=== PATIENT | male | born 1965 | race African-American/Black ===

== ENCOUNTER 2017-11-06 08:13 | Emergency (ER) | payer MEDICARE ==
[2017-11-06] MEDS: FLUORESCEIN OPHTH TEST STRIP. OD (09:09)
[2017-11-06] MEDS: PROPARACAINE 0.5% OPHTH SOLUTION 15ML BOTTLE. OD (09:10)
[2017-11-06] MEDS: ACYCLOVIR SODIUM IV (09:30)
[2017-11-06] MEDS: DEXTROSE 5% IV (09:30)
[2017-11-06 10:26] LABS: ADD MAN DIFF? NO
[2017-11-06 10:29] LABS: BASO # 0.1 x10^3/uL (0.0-0.2); BASO % 3 % (0-3); EOS # 0.1 x10^3/uL (0.0-0.7); EOS % 3 % (0-3); HEMATOCRIT 34.6 % (39.0-53.0); HEMOGLOBIN 11.9 g/dL (13.0-17.5); LYMPH # 0.6 x10^3/uL (1.0-4.8); LYMPH % 24 % (24-48); MEAN CORPUSCULAR HEMOGLOBIN 32 pg (25-35); MEAN CORPUSCULAR HGB CONC 35 g/dL (31-37); MEAN CORPUSCULAR VOLUME 92 fL (79-100); MONO # 0.2 x10^3/uL (0.0-1.1); MONO % 9 % (0-9); NEUT # 1.5 x10^3uL (1.8-7.7); NEUT % 62 % (31-73); PLATELET COUNT 107 x10^3/uL (140-400); RED BLOOD COUNT 3.78 x10^6/uL (4.30-5.70); RED CELL DISTRIBUTION WIDTH 14.6 % (11.5-14.5); WHITE BLOOD COUNT 2.4 x10^3/uL (4.0-11.0)
[2017-11-06 10:38] LABS: ANION GAP 13 (6-14); BLOOD UREA NITROGEN 7 mg/dL (8-26); BUN/CREATININE RATIO 12 (6-20); CALCIUM 8.9 mg/dL (8.5-10.1); CARBON DIOXIDE 26 mmol/L (21-32); CHLORIDE 102 mmol/L (98-107); CREATININE 0.6 mg/dL (0.7-1.3); GFR 169.9; GLUCOSE 60 mg/dL (70-99); SODIUM 141 mmol/L (136-145)
[2017-11-06 10:40] LABS: POTASSIUM 3.8 mmol/L (3.5-5.1)
[2017-11-06 10:45] LABS: ALBUMIN 3.3 g/dL (3.4-5.0); ALBUMIN/GLOBULIN RATIO 0.7 (1.0-1.7); ALK PHOS 109 U/L (46-116); ALT (SGPT) 21 U/L (16-63); AST (SGOT) 78 U/L (15-37); TOTAL BILIRUBIN 0.7 mg/dL (0.2-1.0)
[2017-11-06] MEDS ORDERED: ACYCLOVIR SODIUM IV (14:00)
[2017-11-06] MEDS ORDERED: DEXTROSE 5% IV (14:00)
[2017-11-06 17:10] LABS: POC GLUCOSE 82 mg/dL (70-99)
== END 2017-11-06 11:25 | disposition home or self-care (01) ==
LOC: ER 08:13
DX: B02.30 Zoster ocular disease, unspecified (principal)
CPT/HCPCS: 36415; 80053; 82962; 85025; 96365; 99284-25; J0133

== ENCOUNTER 2019-03-07 13:09 | Inpatient (IN) | payer MEDICARE ==
[~2019-03-07] VITALS: Ht 162.6 cm; Wt 54.7 kg
[~2019-03-07 13:09] MED LIST: ACYC800T PO; HYDR-3164 PO; PANT40TA77 PO
[2019-03-07] MEDS ORDERED: IV NORMAL SALINE 1000ML BAG 1,000 ML IV SCH (13:49)
--- NOTE | 2019-03-07 13:56 | PHYS DOC ---
Past Medical History Past Medical History: GERD, Pancreatitis, Other Additional Past Medical Histor: SHINGLES Past Surgical History: Other Additional Past Surgical Histo: PLATE/SCREWS RIGT FEMUR AND RIGHT HUMERUS Smoking: Cigarettes Alcohol Use: Heavy Drug Use: None Adult General Chief Complaint Chief Complaint: ABDOMINAL PAIN HPI HPI Patient is a 53 y/o AAM who presents to the ED for evaluation of epigastric abdominal pain, which began last night, after drinking a pint of liquor. He has had an episode of pancreatitis in the past, according to records reviewed. He has not had any nausea or vomiting. He states that he has had similar pain in the past after drinking alcohol. He has not had any fevers or chills, denies any chest pain, or black or bloody stools. There are no alleviating or exacerbating factors to his symptoms otherwise. He states he states a little bit of the pint of alcohol that he had from yesterday, for this morning. Patient did have a CT of his abdomen and pelvis this past December, which has been reviewed. Review of Systems Review of Systems Constitutional: Denies fever or chills [] Eyes: Denies change in visual acuity, redness, or eye pain [] HENT: Denies nasal congestion or sore throat [] Respiratory: Denies cough or shortness of breath [] Cardiovascular: The patient denies any shortness of breath, chest pain, palpitations, or orthopnea[] GI: Denies nausea, vomiting, bloody stools or diarrhea [] : Denies dysuria or hematuria [] Musculoskeletal: Denies back pain or joint pain [] Integument: Denies rash or skin lesions [] Neurologic: Denies headache, focal weakness or sensory changes [] Endocrine: Denies polyuria or polydipsia [] All other systems were reviewed and found to be within normal limits, except as documented in this note. Current Medications Current Medications Current Medications Medications (Trade) Dose Ordered Sig/Elana Start Time Stop Time Status Last Admin Dose Admin Dextrose/Lactated Ringer's 1,000 ml @ 125 mls/hr 1X ONCE 03/07/19 15:00 03/07/19 22:59 Famotidine (Pepcid Vial) 20 mg 1X ONCE 03/07/19 14:00 03/07/19 14:01 DC 03/07/19 14:08 20 MG Info (CONTRAST GIVEN -- Rx MONITORING) 1 each PRN DAILY PRN 03/07/19 15:15 03/09/19 15:14 Iohexol (Omnipaque 300 Mg/ml) 75 ml 1X ONCE 03/07/19 15:15 03/07/19 15:16 DC 03/07/19 15:28 75 ML Magnesium Sulfate 50 ml @ 25 mls/hr 1X ONCE 03/07/19 15:30 03/07/19 17:29 Multi-Ingredient Mouthwash/Gargle (Gi Cocktail) 20 ml 1X ONCE 03/07/19 14:00 03/07/19 14:01 DC 03/07/19 14:08 20 ML Multivitamins 10 ml/Thiamine HCl 100 mg/Folic Acid 1 mg/Sodium Chloride 1,011.2 ml @ 1,000.088 mls/hr 1X ONCE 03/07/19 15:15 03/07/19 16:15 03/07/19 15:55 1,000.088 MLS/HR Ondansetron HCl (Zofran) 4 mg 1X ONCE 03/07/19 14:00 03/07/19 14:01 DC 03/07/19 14:08 4 MG Sodium Chloride 1,000 ml @ 1,000 mls/hr Q1H 03/07/19 13:49 03/07/19 14:48 DC 03/07/19 14:08 1,000 MLS/HR Allergies Allergies Allergies Coded Allergies Type Severity Reaction Last Updated Verified No Known Drug Allergies 11/06/17 No Physical Exam Physical Exam PHYSICAL EXAM: CONSTITUTIONAL: Well developed, well nourished HEAD: normocephalic, atraumatic EENT: PERRL, EOMI. Conjunctivae normal color, sclerae non-icteric; moist mucous membranes. There is no nystagmus noted. NECK: Supple, non-tender; no meningismus. LUNGS: Lungs CTA, breathing even and unlabored. Normal air movement. HEART: Regular rate and rhythm, no murmur CHEST: No deformity; non-tender ABDOMEN: The abdomen is soft, there is diffuse upper abdominal tenderness to palpation, most prominent in the epigastric area, without rebound or guarding, the lower abdomen is soft and mostly non-tender, no masses or bruits. EXTREM: Normal ROM; no deformity, no calf tenderness. Normal pulses palpable in all extremities. There is no pedal edema. SKIN: No rash; no diaphoresis NEURO: Alert; normal speech and cognition; CN's grossly intact; strength grossly intact without focal deficit. BACK: No CVA TTP. Current Patient Data Vital Signs Vital Signs Date Time Temp Pulse Resp B/P (MAP) Pulse Ox O2 Delivery O2 Flow Rate FiO2 03/07/19 13:15 97.8 90 16 160/97 (118) 100 Room Air 97.8 Lab Values Laboratory Tests Test 03/07/19 13:54 03/07/19 14:20 03/07/19 15:30 Urine Collection Type Unknown Urine Color Yellow Urine Clarity Clear Urine pH 5.5 Urine Specific Bliss 1.015 Urine Protein 100 mg/dL (NEG-TRACE) Urine Glucose (UA) Negative mg/dL (NEG) Urine Ketones (Stick) >=80 mg/dL (NEG) Urine Blood Small (NEG) Urine Nitrite Negative (NEG) Urine Bilirubin Moderate (NEG) Urine Urobilinogen Dipstick 1.0 mg/dL (0.2 mg/dL) Urine Leukocyte Esterase Negative (NEG) Urine RBC 0 /HPF (0-2) Urine WBC 0 /HPF (0-4) Urine Bacteria 0 /HPF (0-FEW) Urine Hyaline Casts Occasional /HPF Urine Mucus Mod /LPF Urine Opiates Screen Neg (NEG) Urine Methadone Screen Neg (NEG) Urine Barbiturates Neg (NEG) Urine Phencyclidine Screen Pos (NEG) Urine Amphetamine/Methamphetamine Neg (NEG) Urine Benzodiazepines Screen Neg (NEG) Urine Cocaine Screen Neg (NEG) Urine Cannabinoids Screen Neg (NEG) Urine Ethyl Alcohol Neg (NEG) White Blood Count 6.2 x10^3/uL (4.0-11.0) Red Blood Count 4.55 x10^6/uL (4.30-5.70) Hemoglobin 13.4 g/dL (13.0-17.5) Hematocrit 40.7 % (39.0-53.0) Mean Corpuscular Volume 89 fL (79-100) Mean Corpuscular Hemoglobin 30 pg (25-35) Mean Corpuscular Hemoglobin Concent 33 g/dL (31-37) Red Cell Distribution Width 13.8 % (11.5-14.5) Platelet Count 129 x10^3/uL (140-400) L Neutrophils (%) (Auto) 79 % (31-73) H Lymphocytes (%) (Auto) 12 % (24-48) L Monocytes (%) (Auto) 8 % (0-9) Eosinophils (%) (Auto) 1 % (0-3) Basophils (%) (Auto) 0 % (0-3) Neutrophils # (Auto) 4.9 x10^3/uL (1.8-7.7) Lymphocytes # (Auto) 0.8 x10^3/uL (1.0-4.8) L Monocytes # (Auto) 0.5 x10^3/uL (0.0-1.1) Eosinophils # (Auto) 0.1 x10^3/uL (0.0-0.7) Basophils # (Auto) 0.0 x10^3/uL (0.0-0.2) Sodium Level 138 mmol/L (136-145) Potassium Level 4.0 mmol/L (3.5-5.1) Chloride Level 98 mmol/L (98-107) Carbon Dioxide Level 11 mmol/L (21-32) *L Anion Gap 29 (6-14) H Blood Urea Nitrogen 4 mg/dL (8-26) L Creatinine 1.2 mg/dL (0.7-1.3) Estimated GFR (Cockcroft-Gault) 76.1 BUN/Creatinine Ratio 3 (6-20) L Glucose Level 81 mg/dL (70-99) Lactic Acid Level 1.0 mmol/L (0.4-2.0) Calcium Level 9.1 mg/dL (8.5-10.1) Magnesium Level 1.4 mg/dL (1.8-2.4) L Total Bilirubin 0.8 mg/dL (0.2-1.0) Aspartate Amino Transferase (AST) 53 U/L (15-37) H Alanine Aminotransferase (ALT) 26 U/L (16-63) Alkaline Phosphatase 121 U/L (46-116) H Troponin I Quantitative < 0.017 ng/mL (0.000-0.055) Total Protein 8.4 g/dL (6.4-8.2) H Albumin 3.5 g/dL (3.4-5.0) Albumin/Globulin Ratio 0.7 (1.0-1.7) L Lipase 966 U/L (73-393) H Ethyl Alcohol Level < 10 mg/dL (0-10) Acetone Level Mod pos (NEG) O2 Saturation 97 % (92-99) Arterial Blood pH 7.17 (7.35-7.45) *L Arterial Blood pCO2 at Patient Temp < 15 mmHg (35-46) *L Arterial Blood pO2 at Patient Temp 116 mmHg (75-108) H Arterial Blood HCO3 5 mmol/L (21-28) L Arterial Blood Base Excess -21 mmol/L (-3-3) L FiO2 21 Laboratory Tests 03/07/19 14:20 Laboratory Tests 03/07/19 14:20 EKG EKG Normal sinus rhythm with a normal rate, normal axis, normal intervals, there are no acute ischemic ST/T changes.[] Radiology/Procedures Radiology/Procedures []PROCEDURE: CT ABD PELV W/ IV CONTRST ONLY Exam: CT abdomen and pelvis with contrast INDICATION: Abdominal pain TECHNIQUE: Sequential axial images through the abdomen and pelvis obtained following the administration of 75 mL of Omni 300 IV contrast. Sagittal and coronal reformatted images were reconstructed from the axial data and reviewed. Comparisons: 01/06/2019 FINDINGS: Heart size is normal. No pericardial effusion. Visualized lung bases are clear. No pleural effusion. Diffuse hepatic steatosis. Gallstones and sludge are noted layering within the gallbladder. Spleen is not enlarged. Adrenals are unremarkable. There is inflammatory changes surrounding the pancreas. Pancreas demonstrates homogenous enhancement without pancreatic ductal dilatation or peripancreatic fluid collection. Kidneys demonstrate symmetric enhancement. No perinephric inflammation or hydronephrosis. There is mild ureteral wall enhancement on the left proximally which may be secondary to the above process. No renal or ureteral calculi. Bladder is distended and appears thin-walled. Prostate is not enlarged. Large and small bowel are unremarkable. No obstruction. No free intra-abdominal air or fluid. Abdominal aorta has a normal course and caliber. Abdominal vasculature is patent. No enlarged intra-abdominal lymph nodes are identified. Severe degenerative change at the hip joints bilaterally. No suspicious osseous lesions or acute fractures. IMPRESSION: 1. Findings of acute interstitial pancreatitis. No evidence for pancreatic necrosis or peripancreatic fluid collection. 2. Mild enhancement of the proximal left ureter wall, may be reactive to the above process. Correlate with urinalysis for infection. 3. Hepatic steatosis 4. Cholelithiasis. Course & Med Decision Making Course & Med Decision Making Pertinent Labs and Imaging studies reviewed. (See chart for details) []4:00 PM: The patient's condition remains stable. I spoke with the patient's PCP, who accepted the patient to the hospital for further evaluation and treatment. CRITICAL CARE TIME: 40 Minutes, excluding any procedures and care of other patients. Dragon Disclaimer Dragon Disclaimer This electronic medical record was generated, in whole or in part, using a voice recognition dictation system. Departure Departure Impression: Primary Impression: Alcoholic ketoacidosis Additional Impressions: Acute pancreatitis Alcoholism Disposition: 09 ADMITTED INPATIENT Admitting Physician: Saul Shook Condition: GUARDED Referrals: SAUL SHOOK MD (PCP) Problem Qualifiers ULISES MCKNIGHT MD Mar 07, 2019 13:55
[2019-03-07] MEDS ORDERED: LIDO:MAALOX 1:1 20 ML SINGLE DOSE. SWSW ONE (14:00)
[2019-03-07] MEDS ORDERED: FAMOTIDINE 20 MG/2 ML VIAL IVP ONE (14:00)
[2019-03-07] MEDS ORDERED: ONDANSETRON PF 4 MG/2 ML VIAL. IV ONE (14:00)
[2019-03-07 14:04] LABS: BILIRUBIN,URINE MODERATE (NEG); CLARITY,URINE CLEAR; COLOR,URINE YELLOW; NITRITE,URINE NEGATIVE (NEG); PH,URINE 5.5; PROTEIN,URINE 100 mg/dL (NEG-TRACE)
[2019-03-07 14:10] LABS: AMPHETAMINE/METHAMPHETAMINE NEG (NEG); BARBITURATES NEG (NEG); BENZODIAZEPINES NEG (NEG); CANNABINOIDS NEG (NEG); COCAINE NEG (NEG); METHADONE NEG (NEG); OPIATES NEG (NEG); PHENCYCLIDINE POS (NEG)
[2019-03-07 14:13] LABS: HYALINE CASTS, URINE OCCASIONAL /HPF
[2019-03-07 14:14] LABS: BACTERIA,URINE 0 /HPF (0-FEW); RBC,URINE 0 /HPF (0-2); WBC,URINE 0 /HPF (0-4)
[2019-03-07 14:34] LABS: BASO % 0 % (0-3); EOS # 0.1 x10^3/uL (0.0-0.7); EOS % 1 % (0-3); HEMATOCRIT 40.7 % (39.0-53.0); HEMOGLOBIN 13.4 g/dL (13.0-17.5); LYMPH # 0.8 x10^3/uL (1.0-4.8); LYMPH % 12 % (24-48); MEAN CORPUSCULAR HEMOGLOBIN 30 pg (25-35); MEAN CORPUSCULAR HGB CONC 33 g/dL (31-37); MEAN CORPUSCULAR VOLUME 89 fL (79-100); MONO # 0.5 x10^3/uL (0.0-1.1); MONO % 8 % (0-9); NEUT # 4.9 x10^3/uL (1.8-7.7); NEUT % 79 % (31-73); PLATELET COUNT 129 x10^3/uL (140-400); RED BLOOD COUNT 4.55 x10^6/uL (4.30-5.70); RED CELL DISTRIBUTION WIDTH 13.8 % (11.5-14.5); WHITE BLOOD COUNT 6.2 x10^3/uL (4.0-11.0)
[2019-03-07 14:45] LABS: ALBUMIN 3.5 g/dL (3.4-5.0); ALBUMIN/GLOBULIN RATIO 0.7 (1.0-1.7); CALCIUM 9.1 mg/dL (8.5-10.1); CREATININE 1.2 mg/dL (0.7-1.3); GFR 76.1; TOTAL BILIRUBIN 0.8 mg/dL (0.2-1.0); TOTAL PROTEIN 8.4 g/dL (6.4-8.2)
[2019-03-07] MEDS ORDERED: IV DEXTROSE 5%-LACT RINGERS 1,000 ML IV ONE ×3 (15:00→16:30)
[2019-03-07] MEDS ORDERED: IOHEXOL 300 MG/ML 100ML VIAL. IV ONE (15:15)
[2019-03-07] MEDS ORDERED: MULTIVIT INFUSN,ADULT 4,VIT K 10 ML, THIAMINE INJ 100 MG, FOLIC ACID INJ 1 MG in IV NOR... IV ONE (15:15)
[2019-03-07] MEDS ORDERED: CONTRAST GIVEN. MC PRN (15:15)
--- NOTE | 2019-03-07 15:19 | EKG ---
[facility] [address] [place] [address] Test Date: 2019-03-07 Test Time: 14:17:40 Pat Name: MARCELINO BRYANT Department: Room: Gender: M Barrel Header: : 1965 Requested By: ULISES MCKNIGHT Order Number: [id number] Reading MD: Measurements Intervals [place] Rate: 90 P: 67 TX: 136 QRS: 59 QRSD: 82 T: 61 QT: 360 QTc: 444 Interpretive Statements SINUS RHYTHM OTHERWISE NORMAL ECG RI6.01 No previous ECG available for comparison
[2019-03-07] MEDS ORDERED: MAGNESIUM SULFATE 2GM 50 ML IV ONE (15:30)
[2019-03-07 15:34] LABS: BASE EXCESS ABG -21 mmol/L (-3-3); HCO3 ABG 5 mmol/L (21-28); PO2 ABG 116 mmHg (75-108); SAT O2 ABG 97 % (92-99)
[2019-03-07 15:37] LABS: FIO2 ABG 21; PCO2 ABG < 15 mmHg (35-46)
--- NOTE | 2019-03-07 15:43 | RAD ---
Exam: CT abdomen and pelvis with contrast INDICATION: Abdominal pain TECHNIQUE: Sequential axial images through the abdomen and pelvis obtained following the administration of 75 mL of Omni 300 IV contrast. Sagittal and coronal reformatted images were reconstructed from the axial data and reviewed. Comparisons: 01/06/2019 FINDINGS: Heart size is normal. No pericardial effusion. Visualized lung bases are clear. No pleural effusion. Diffuse hepatic steatosis. Gallstones and sludge are noted layering within the gallbladder. Spleen is not enlarged. Adrenals are unremarkable. There is inflammatory changes surrounding the pancreas. Pancreas demonstrates homogenous enhancement without pancreatic ductal dilatation or peripancreatic fluid collection. Kidneys demonstrate symmetric enhancement. No perinephric inflammation or hydronephrosis. There is mild ureteral wall enhancement on the left proximally which may be secondary to the above process. No renal or ureteral calculi. Bladder is distended and appears thin-walled. Prostate is not enlarged. Large and small bowel are unremarkable. No obstruction. No free intra-abdominal air or fluid. Abdominal aorta has a normal course and caliber. Abdominal vasculature is patent. No enlarged intra-abdominal lymph nodes are identified. Severe degenerative change at the hip joints bilaterally. No suspicious osseous lesions or acute fractures. IMPRESSION: 1. Findings of acute interstitial pancreatitis. No evidence for pancreatic necrosis or peripancreatic fluid collection. 2. Mild enhancement of the proximal left ureter wall, may be reactive to the above process. Correlate with urinalysis for infection. 3. Hepatic steatosis 4. Cholelithiasis. Exposure: One or more of the following in the visualized dose reduction techniques were utilized for this examination: 1. Automated exposure control 2. Adjustment of the MA and/or KV according to patient size 3. Use of iterative of reconstructive technique Electronically signed by: Angella Awad MD (03/07/2019 3:40 PM) [facility]
[2019-03-07 18:05] VITALS: BP 154/108
[2019-03-07 19:20] VITALS: BP 193/111
[2019-03-07] MEDS ORDERED: cloNIDine TTS-2 1 PATCH PATCH TD SCH (20:00)
[2019-03-07] MEDS: hydrALAZINE 20 MG/ML VIAL. IVP PRN (21:29)
[2019-03-07] MEDS: ONDANSETRON PF 4 MG/2 ML VIAL. IV PRN (23:26)
[2019-03-07 23:51] VITALS: BP 161/83
[2019-03-08 03:23] VITALS: BP 165/87
[2019-03-08 03:57] LABS: BASO % 0 % (0-3); EOS # 0.1 x10^3/uL (0.0-0.7); EOS % 3 % (0-3); HEMATOCRIT 38.8 % (39.0-53.0); HEMOGLOBIN 13.1 g/dL (13.0-17.5); LYMPH # 0.5 x10^3/uL (1.0-4.8); LYMPH % 14 % (24-48); MEAN CORPUSCULAR HEMOGLOBIN 29 pg (25-35); MEAN CORPUSCULAR HGB CONC 34 g/dL (31-37); MEAN CORPUSCULAR VOLUME 87 fL (79-100); MONO # 0.3 x10^3/uL (0.0-1.1); MONO % 8 % (0-9); NEUT # 2.6 x10^3/uL (1.8-7.7); NEUT % 75 % (31-73); PLATELET COUNT 113 x10^3/uL (140-400); RED BLOOD COUNT 4.47 x10^6/uL (4.30-5.70); RED CELL DISTRIBUTION WIDTH 13.3 % (11.5-14.5); WHITE BLOOD COUNT 3.4 x10^3/uL (4.0-11.0)
[2019-03-08 04:27] LABS: ALBUMIN 2.9 g/dL (3.4-5.0); ALBUMIN/GLOBULIN RATIO 0.6 (1.0-1.7); CALCIUM 8.8 mg/dL (8.5-10.1); CREATININE 0.9 mg/dL (0.7-1.3); MAGNESIUM 2.1 mg/dL (1.8-2.4); POTASSIUM 3.3 mmol/L (3.5-5.1); TOTAL BILIRUBIN 0.6 mg/dL (0.2-1.0); TOTAL PROTEIN 7.8 g/dL (6.4-8.2)
[2019-03-08] MEDS: ONDANSETRON PF 4 MG/2 ML VIAL. IV PRN ×2 (05:11→09:27)
[2019-03-08 07:15] VITALS: BP 140/82
[2019-03-08] MEDS: PANTOPRAZOLE IV PUSH 40 MG VIAL. IVP SCH (09:27)
[2019-03-08 10:54] VITALS: BP 159/82
[2019-03-08] MEDS ORDERED: AMINO AC 3%/ELECTROLYTE/GLYCER 1,000 ML IV SCH (13:00)
[2019-03-08 15:03] VITALS: BP 148/90
--- NOTE | 2019-03-08 15:07 | HP ---
ADMIT DATE: 03/07/2019 ADMISSION HISTORY AND PHYSICAL CHIEF COMPLAINT: Abdominal pain. HISTORY OF PRESENT ILLNESS AND HOSPITAL COURSE: This patient is a 53-year-old -[place] male with known alcohol dependence, came to the hospital with increasing abdominal pain. He states this began approximately 2 days ago, he began drinking a pint of gin, his last drink was approximately 12 hours prior to coming to the Emergency Room. Initial evaluation showed CAT scan with evidence of pancreatitis, but without evidence of pseudocyst. The patient was found to have an elevated lipase consistent with acute pancreatitis. Also, found to have significant acidosis consistent with ketoacidosis from alcoholism or alcohol ingestion and carbon dioxide of 11, a pH of 7.17. Urine toxicology showed minimal amounts of alcohol, but positive acetone and a positive PCP. The patient has chronic thrombocytopenia with history of cirrhosis noted. Due to severity of symptoms and the patient's inability to take p.o. intake or take care of himself, he was admitted for further evaluation and n.p.o. status. He was given IV fluids as well as vitamins via banana bag including thiamine, medications for withdrawal were instituted including antihypertensives, benzodiazepines, and antinausea medication. PAST MEDICAL HISTORY: Significant for: 1. Alcohol dependence. 2. Cirrhosis of the liver. 3. Polysubstance abuse. 4. History of cholelithiasis without cholecystitis. 5. Moderate protein malnutrition. 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 7. Hypertension. 8. Polysubstance abuse. FAMILY HISTORY: Significant for heart disease, but the patient is a poor historian. The patient states he has had multiple surgeries on his shoulder, hips and legs, these were not specified. SOCIAL HISTORY: The patient no longer smokes, but does smoke marijuana and has used PCP approximately 1 week ago. The patient drinks alcohol heavily. The patient apparently does live with spouse. ALLERGIES: The patient has no known drug allergies. MEDICATIONS: The patient's outpatient medication includes Protonix 40 mg daily. REVIEW OF SYSTEMS: The patient was doing well until approximately 3 days ago when he went on a drinking binge and began having abdominal pain. Denies cough, congestion, fever, chills, weight loss, weight gain, nausea or vomiting. PHYSICAL EXAMINATION: GENERAL: This is a thin -[place] male in no apparent distress. On my exam, he is alert and oriented at present. HEENT: Reveals poor dentition. NECK: Supple. CARDIAC: Regular rate and rhythm. LUNGS: Clear. ABDOMEN: Tender to palpation with positive bowel sounds. No rebound, mild guarding noted. EXTREMITIES: 2+ pulses without significant edema. No skin lesions or ulcers were noted. ASSESSMENT: 1. Acute pancreatitis. 2. Alcoholic ketoacidosis. 3. Thrombocytopenia. 4. Cirrhosis of the liver. 5. Moderate protein malnutrition. 6. Polysubstance abuse. PLAN: To proceed with alcohol withdrawal precautions, proceed with IV fluids and IV nutrition as needed. Proceed with n.p.o. status. Monitor lipase and electrolytes and acidosis. TREVOR RIOS MD DR: COLBY/malka JOB#: [id number] / [id number]
[2019-03-08 19:38] VITALS: BP 164/99
[2019-03-08 23:46] VITALS: BP 152/101
[2019-03-09] MEDS: ONDANSETRON PF 4 MG/2 ML VIAL. IV PRN ×4 (01:17→20:19)
[2019-03-09] MEDS ORDERED: AMINO AC 3%/ELECTROLYTE/GLYCER 1,000 ML IV SCH (01:30)
[2019-03-09 03:34] VITALS: BP 162/95
[2019-03-09 06:11] LABS: CALCIUM 9.2 mg/dL (8.5-10.1); CREATININE 0.6 mg/dL (0.7-1.3); GFR 169.3; POTASSIUM 3.3 mmol/L (3.5-5.1)
[2019-03-09 07:15] VITALS: BP 140/91
[2019-03-09] MEDS: PANTOPRAZOLE IV PUSH 40 MG VIAL. IVP SCH (08:12)
--- NOTE | 2019-03-09 09:48 | NUR ---
CHRISTOPHER following pt for dc planning. Chart reviewed. Pt lives at home and has chronic ETOH use hx and currently going through detox. CHRISTOPHER phoned PAT team for assessment and evaluation for ETOH use treatment. Addendum: 03/09/19 at 1414 by NICHO WHITE Pt seen by PAT team. Pt is not interested in Inpt tx but has agreed to f/u with [facility] for op tx. Pt is provided with resources.
[2019-03-09 10:52] VITALS: BP 140/96
--- NOTE | 2019-03-09 12:59 | PDOC ---
PROGRESS NOTES Subjective Subjective Patient having recurrent pain with clear liquids. will increase nausea and pain treatment and make npo lipase slightly higher. Objective Objective Vital Signs Date Time Temp Pulse Resp B/P (MAP) Pulse Ox O2 Delivery O2 Flow Rate FiO2 03/09/19 10:52 98.2 103 20 140/96 (111) 99 Room Air 98.2 Intake and Output 03/09/19 07:00 Intake Total 220 ml Output Total 1076 ml Balance -856 ml Intake Oral 220 ml Output Urine Total 1075 ml Stool Total 1 ml Physical Exam Abdomen: Normal bowel sounds, Other (tender mid abd. Neg rebound) Heart: Regular rate Extremities: No edema General: Alert Lungs: Clear to auscultation Assessment Assessment Problems Medical Problems: (1) Acute pancreatitis Status: Acute (2) Alcoholic ketoacidosis Status: Acute (3) Alcoholism Status: Acute (4) Liver cirrhosis Status: Chronic 1. Acute pancreatitis. 2. Alcoholic ketoacidosis. 3. Thrombocytopenia. 4. Cirrhosis of the liver. 5. Moderate protein malnutrition. 6. Polysubstance abuse. Plan Plan of Care Back to NPO continue ProcalAmine Add fentanyl and Compazine recheck labs in am consult GI Comment Review of Relevant I have reviewed the following items adam (where applicable) has been applied. Labs Laboratory Tests Test 03/07/19 13:54 03/07/19 14:20 03/07/19 15:30 03/08/19 03:40 Urine Collection Type Unknown Urine Color Yellow Urine Clarity Clear Urine pH 5.5 Urine Specific [place] 1.015 Urine Protein 100 mg/dL (NEG-TRACE) Urine Glucose (UA) Negative mg/dL (NEG) Urine Ketones (Stick) >=80 mg/dL (NEG) Urine Blood Small (NEG) Urine Nitrite Negative (NEG) Urine Bilirubin Moderate (NEG) Urine Urobilinogen Dipstick 1.0 mg/dL (0.2 mg/dL) Urine Leukocyte Esterase Negative (NEG) Urine RBC 0 /HPF (0-2) Urine WBC 0 /HPF (0-4) Urine Bacteria 0 /HPF (0-FEW) Urine Hyaline Casts Occasional /HPF Urine Mucus Mod /LPF Urine Opiates Screen Neg (NEG) Urine Methadone Screen Neg (NEG) Urine Barbiturates Neg (NEG) Urine Phencyclidine Screen Pos (NEG) Urine Amphetamine/Methamphetamine Neg (NEG) Urine Benzodiazepines Screen Neg (NEG) Urine Cocaine Screen Neg (NEG) Urine Cannabinoids Screen Neg (NEG) Urine Ethyl Alcohol Neg (NEG) White Blood Count 6.2 x10^3/uL (4.0-11.0) 3.4 x10^3/uL (4.0-11.0) Red Blood Count 4.55 x10^6/uL (4.30-5.70) 4.47 x10^6/uL (4.30-5.70) Hemoglobin 13.4 g/dL (13.0-17.5) 13.1 g/dL (13.0-17.5) Hematocrit 40.7 % (39.0-53.0) 38.8 % (39.0-53.0) Mean Corpuscular Volume 89 fL (79-100) 87 fL (79-100) Mean Corpuscular Hemoglobin 30 pg (25-35) 29 pg (25-35) Mean Corpuscular Hemoglobin Concent 33 g/dL (31-37) 34 g/dL (31-37) Red Cell Distribution Width 13.8 % (11.5-14.5) 13.3 % (11.5-14.5) Platelet Count 129 x10^3/uL (140-400) 113 x10^3/uL (140-400) Neutrophils (%) (Auto) 79 % (31-73) 75 % (31-73) Lymphocytes (%) (Auto) 12 % (24-48) 14 % (24-48) Monocytes (%) (Auto) 8 % (0-9) 8 % (0-9) Eosinophils (%) (Auto) 1 % (0-3) 3 % (0-3) Basophils (%) (Auto) 0 % (0-3) 0 % (0-3) Neutrophils # (Auto) 4.9 x10^3/uL (1.8-7.7) 2.6 x10^3/uL (1.8-7.7) Lymphocytes # (Auto) 0.8 x10^3/uL (1.0-4.8) 0.5 x10^3/uL (1.0-4.8) Monocytes # (Auto) 0.5 x10^3/uL (0.0-1.1) 0.3 x10^3/uL (0.0-1.1) Eosinophils # (Auto) 0.1 x10^3/uL (0.0-0.7) 0.1 x10^3/uL (0.0-0.7) Basophils # (Auto) 0.0 x10^3/uL (0.0-0.2) 0.0 x10^3/uL (0.0-0.2) Sodium Level 138 mmol/L (136-145) 137 mmol/L (136-145) Potassium Level 4.0 mmol/L (3.5-5.1) 3.3 mmol/L (3.5-5.1) Chloride Level 98 mmol/L (98-107) 102 mmol/L (98-107) Carbon Dioxide Level 11 mmol/L (21-32) 18 mmol/L (21-32) Anion Gap 29 (6-14) 17 (6-14) Blood Urea Nitrogen 4 mg/dL (8-26) 2 mg/dL (8-26) Creatinine 1.2 mg/dL (0.7-1.3) 0.9 mg/dL (0.7-1.3) Estimated GFR (Cockcroft-Gault) 76.1 106.0 BUN/Creatinine Ratio 3 (6-20) 2 (6-20) Glucose Level 81 mg/dL (70-99) 120 mg/dL (70-99) Lactic Acid Level 1.0 mmol/L (0.4-2.0) Calcium Level 9.1 mg/dL (8.5-10.1) 8.8 mg/dL (8.5-10.1) Magnesium Level 1.4 mg/dL (1.8-2.4) 2.1 mg/dL (1.8-2.4) Total Bilirubin 0.8 mg/dL (0.2-1.0) 0.6 mg/dL (0.2-1.0) Aspartate Amino Transf (AST/SGOT) 53 U/L (15-37) 43 U/L (15-37) Alanine Aminotransferase (ALT/SGPT) 26 U/L (16-63) 19 U/L (16-63) Alkaline Phosphatase 121 U/L (46-116) 104 U/L (46-116) Troponin I Quantitative < 0.017 ng/mL (0.000-0.055) Total Protein 8.4 g/dL (6.4-8.2) 7.8 g/dL (6.4-8.2) Albumin 3.5 g/dL (3.4-5.0) 2.9 g/dL (3.4-5.0) Albumin/Globulin Ratio 0.7 (1.0-1.7) 0.6 (1.0-1.7) Lipase 966 U/L (73-393) 950 U/L (73-393) Ethyl Alcohol Level < 10 mg/dL (0-10) Acetone Level Mod pos (NEG) O2 Saturation 97 % (92-99) Arterial Blood pH 7.17 (7.35-7.45) Arterial Blood pCO2 at Patient Temp < 15 mmHg (35-46) Arterial Blood pO2 at Patient Temp 116 mmHg (75-108) Arterial Blood HCO3 5 mmol/L (21-28) Arterial Blood Base Excess -21 mmol/L (-3-3) FiO2 21 Test 03/09/19 04:50 Sodium Level 138 mmol/L (136-145) Potassium Level 3.3 mmol/L (3.5-5.1) Chloride Level 103 mmol/L (98-107) Carbon Dioxide Level 24 mmol/L (21-32) Anion Gap 11 (6-14) Blood Urea Nitrogen 5 mg/dL (8-26) Creatinine 0.6 mg/dL (0.7-1.3) Estimated GFR (Cockcroft-Gault) 169.3 Glucose Level 122 mg/dL (70-99) Calcium Level 9.2 mg/dL (8.5-10.1) Lipase 1075 U/L (73-393) Laboratory Tests Test 03/09/19 04:50 Sodium Level 138 mmol/L (136-145) Potassium Level 3.3 mmol/L (3.5-5.1) Chloride Level 103 mmol/L (98-107) Carbon Dioxide Level 24 mmol/L (21-32) Anion Gap 11 (6-14) Blood Urea Nitrogen 5 mg/dL (8-26) Creatinine 0.6 mg/dL (0.7-1.3) Estimated GFR (Cockcroft-Gault) 169.3 Glucose Level 122 mg/dL (70-99) Calcium Level 9.2 mg/dL (8.5-10.1) Lipase 1075 U/L (73-393) Medications Current Medications Sodium Chloride 1,000 ml @ 1,000 mls/hr Q1H IV Last administered on 03/07/19at 14:08; Start 03/07/19 at 13:49; Stop 03/07/19 at 14:48; Status DC Ondansetron HCl (Zofran) 4 mg 1X ONCE IV Last administered on 03/07/19at 14:08; Start 03/07/19 at 14:00; Stop 03/07/19 at 14:01; Status DC Famotidine (Pepcid Vial) 20 mg 1X ONCE IVP Last administered on 03/07/19at 14:08; Start 03/07/19 at 14:00; Stop 03/07/19 at 14:01; Status DC Multi-Ingredient Mouthwash/Gargle (Gi Cocktail) 20 ml 1X ONCE SWSW Last administered on 03/07/19at 14:08; Start 03/07/19 at 14:00; Stop 03/07/19 at 14:01; Status DC Dextrose/Lactated Ringer's 1,000 ml @ 999 mls/hr 1X ONCE IV Last administered on 03/07/19at 15:55; Start 03/07/19 at 15:00; Stop 03/07/19 at 16:00; Status DC Dextrose/Lactated Ringer's 1,000 ml @ 125 mls/hr 1X ONCE IV ; Start 03/07/19 at 15:00; Stop 03/07/19 at 22:59; Status Cancel Iohexol (Omnipaque 300 Mg/ml) 75 ml 1X ONCE IV Last administered on 03/07/19at 15:28; Start 03/07/19 at 15:15; Stop 03/07/19 at 15:16; Status DC Info (CONTRAST GIVEN -- Rx MONITORING) 1 each PRN DAILY PRN MC SEE COMMENTS; Start 03/07/19 at 15:15; Stop 03/09/19 at 15:14 Multivitamins 10 ml/Thiamine HCl 100 mg/Folic Acid 1 mg/Sodium Chloride 1,011.2 ml @ 1,000.088 mls/hr 1X ONCE IV Last administered on 03/07/19at 15:55; Start 03/07/19 at 15:15; Stop 03/07/19 at 16:15; Status DC Magnesium Sulfate 50 ml @ 25 mls/hr 1X ONCE IV Last administered on 03/07/19 23:27; Start 03/07/19 at 15:30; Stop 03/07/19 at 17:29; Status DC Dextrose/Lactated Ringer's 1,000 ml @ 125 mls/hr 1X ONCE IV Last administered on 03/07/19 18:12; Start 03/07/19 at 16:30; Stop 03/08/19 at 00:29; Status DC Pantoprazole Sodium (PROTONIX VIAL for IV PUSH) 40 mg DAILYAC IVP Last administered on 03/09/19 08:13; Start 03/08/19 at 07:30 Lorazepam (Ativan Inj) 0.5 mg PRN Q4HRS PRN IV ANXIETY / AGITATION Last administered on 03/07/19 23:27; Start 03/07/19 at 19:30 Clonidine HCl (Catapres Tts-2) 1 patch We TD Last administered on 03/07/19at 21:32; Start 03/07/19 at 20:00 Hydralazine HCl (Apresoline Inj) 10 mg PRN Q4HRS PRN IVP ELEVATED BP, SEE C OMMENTS Last administered on 03/07/19at 21:32; Start 03/07/19 at 19:30 Ondansetron HCl (Zofran) 4 mg PRN Q4HRS PRN IV NAUSEA/VOMITING 1ST CHOICE Last administered on 03/09/19 08:13; Start 03/07/19 at 22:30 Amino Acids/ Glycerin/ Electrolytes 1,000 ml @ 80 mls/hr [id number] IV Last administered on 03/08/19 14:25; Start 03/08/19 at 13:00; Stop 03/09/19 at 01:29; Status DC Amino Acids/ Glycerin/ Electrolytes 1,000 ml @ 80 mls/hr [id number] IV Last administered on 03/09/19 02:24; Start 03/09/19 at 01:30; Stop 03/09/19 at 13:59 Active Scripts Active Pantoprazole Sodium (Pantoprazole Sodium) 40 Mg Tablet.dr 40 Mg PO DAILYAC 30 Days Vitals/I & O Vital Sign - Last 24 Hours 03/08/19 03/08/19 03/08/19 03/08/19 15:03 19:38 20:03 23:46 Temp 97.3 98.4 98.5 97.3 98.4 98.5 Pulse 89 101 95 Resp 18 18 18 B/P (MAP) 148/90 (109) 164/99 (120) 152/101 (118) Pulse Ox 98 99 99 O2 Delivery Room Air Room Air Room Air Room Air 03/09/19 03/09/19 03/09/19 03/09/19 03:34 07:15 08:00 10:52 Temp 98.3 98.0 98.2 98.3 98.0 98.2 Pulse 98 71 103 Resp 18 20 B/P (MAP) 162/95 (117) 140/91 (107) 140/96 (111) Pulse Ox 97 96 99 O2 Delivery Room Air Room Air Room Air Room Air Intake and Output 03/08/19 03/08/19 03/09/19 15:00 23:00 07:00 Intake Total 220 ml Output Total 400 ml 126 ml 550 ml Balance -400 ml 94 ml -550 ml TREVOR RIOS MD Mar 09, 2019 12:59
[2019-03-09] MEDS ORDERED: PROCHLORPERAZINE 10 MG/2 ML VIAL. IV PRN (13:00)
[2019-03-09] MEDS: POTASSIUM CHLORIDE 10MEQ 100 ML IV SCH ×2 (13:41→15:44)
[2019-03-09] MEDS: fentaNYL PF VIAL 100 MCG/2 ML VIAL IV PRN ×2 (13:42→20:19)
--- NOTE | 2019-03-09 14:37 | PDOC2 ---
GI CONSULT Reason For Consult: Pancreatitis HPI: HPI: 53 y/o male admitted on 03/07/19. H/o pancreatitis, alcohol abuse, and gallstones. We saw him in December. At that time, abstinence from alcohol and elective cholecystectomy recommended. Tells me ill for ~3 days w/ epigastric pain. I asked about precipitating events and he says "you know what I did." Apparently quit drinking for about 1.5 months but then started again - other notes suggest has been having a lot of gin. Tox screen +PCP and acetone. Lipase elevated in 900s, today 1075. CO2 11 on admission, now normal. AST and Alk Phos elevated at first, now better. CT showed acute pancreatitis w/o necrosis or fluid collection. Today, increased pain on clear liquids. Back to NPO and pain meds adjusted per Dr. Shook. Pt says Fentanyl is helping. Remote h/o "ulcer." Denies reflux/heartburn, dysphagia, n/v, diarrhea, constipation, hematochezia, or melena. Assumes weight loss. No previous EGD or colonoscopy. Imaging now and in the past w/ hepatic steatosis and hepatomegaly. Cholelithiasis again noted on CT. H/o thrombocytopenia. PMH: PMH: HTN FH: Family History: No pertinent hx Social History: Smoke: Quit ALCOHOL: heavy Drugs: Other (PCP) ROS: GEN: Denies fevers, chills, sweats HEENT: Denies blurred vision, sore throat CV: Denies chest pain RESP: Denies shortness of air, cough GI: Per HPI : Denies hematuria, dysuria ENDO: ?weight loss NEURO: Denies confusion, dizziness MSK: Denies weakness, joint pain/swelling SKIN: Denies jaundice, pruritus Vitals: Vitals: Vital Signs Date Time Temp Pulse Resp B/P (MAP) Pulse Ox O2 Delivery O2 Flow Rate FiO2 03/09/19 13:42 Room Air 03/09/19 10:52 98.2 103 20 140/96 (111) 99 98.2 Labs: Labs: Laboratory Tests Test 03/09/19 04:50 Sodium Level 138 mmol/L (136-145) Potassium Level 3.3 mmol/L (3.5-5.1) Chloride Level 103 mmol/L (98-107) Carbon Dioxide Level 24 mmol/L (21-32) Anion Gap 11 (6-14) Blood Urea Nitrogen 5 mg/dL (8-26) Creatinine 0.6 mg/dL (0.7-1.3) Estimated GFR (Cockcroft-Gault) 169.3 Glucose Level 122 mg/dL (70-99) Calcium Level 9.2 mg/dL (8.5-10.1) Lipase 1075 U/L (73-393) Allergies: Coded Allergies: No Known Drug Allergies (Unverified , 11/06/17) Medications: Current Medications Medications (Trade) Dose Ordered Sig/Elana Route PRN Reason Start Time Stop Time Status Last Admin Dose Admin Amino Acids/ Glycerin/ Electrolytes 1,000 ml @ 80 mls/hr [id number] IV 03/09/19 01:30 03/09/19 13:59 DC 03/09/19 02:24 Potassium Chloride/Water 100 ml @ 100 mls/hr Q1H IV 03/09/19 13:00 03/09/19 14:59 03/09/19 13:42 Fentanyl Citrate (Fentanyl 2ml Vial) 50 mcg QIDPRN PRN IV PAIN 03/09/19 13:00 03/09/19 13:42 Imaging: Imaging: CT A/P IMPRESSION: 1. Findings of acute interstitial pancreatitis. No evidence for pancreatic necrosis or peripancreatic fluid collection. 2. Mild enhancement of the proximal left ureter wall, may be reactive to the above process. Correlate with urinalysis for infection. 3. Hepatic steatosis 4. Cholelithiasis. PE: GEN: NAD, was talking on the phone HEENT: Atraumatic, PERRL LUNGS: CTAB HEART: mild tachycardic ABD: quiet, soft, epigastric discomfort EXTREMITY: No edema SKIN: No rashes, no jaundice NEURO/PSYCH: A & O �3 A/P: A/P: Recurrent pancreatitis - h/o alcohol abuse and cholelithiasis CRC screen - none Leukopenia, thrombocytopenia, hepatic steatosis HTN, substance abuse -- Epigastric pain worse today after trial of clears. Agree w/ NPO, continue supportive care w/ IVF and pain control per primary. Agree w/ PPI - change to PO when eating. Discussed need to stop drinking. Previous recs for elective cholecystectomy. Needs outpt screening colonoscopy +/- EGD. LESLIE AYERS Mar 09, 2019 14:37
[2019-03-09 14:51] VITALS: BP 158/106
[2019-03-09] MEDS: AMINO AC 3%/ELECTROLYTE/GLYCER 1,000 ML IV SCH (15:43)
[2019-03-09 19:42] VITALS: BP 150/82
[2019-03-09 23:12] VITALS: BP 156/93
[2019-03-10] VITALS (7 sets, daily range): BP systolic 139–173; BP diastolic 90–100
[2019-03-10] MEDS: fentaNYL PF VIAL 100 MCG/2 ML VIAL IV PRN ×4 (02:35→21:18)
[2019-03-10 04:37] LABS: HEMATOCRIT 36.8 % (39.0-53.0); HEMOGLOBIN 12.4 g/dL (13.0-17.5); RED BLOOD COUNT 4.25 x10^6/uL (4.30-5.70); RED CELL DISTRIBUTION WIDTH 13.4 % (11.5-14.5); WHITE BLOOD COUNT 2.6 x10^3/uL (4.0-11.0)
[2019-03-10 04:55] LABS: CALCIUM 9.3 mg/dL (8.5-10.1); CREATININE 0.6 mg/dL (0.7-1.3); GFR 169.3; POTASSIUM 3.8 mmol/L (3.5-5.1)
[2019-03-10] MEDS: AMINO AC 3%/ELECTROLYTE/GLYCER 1,000 ML IV SCH ×2 (06:16→16:58)
[2019-03-10] MEDS: PANTOPRAZOLE IV PUSH 40 MG VIAL. IVP SCH (07:26)
[2019-03-10] MEDS: ONDANSETRON PF 4 MG/2 ML VIAL. IV PRN (07:26)
--- NOTE | 2019-03-10 09:09 | PDOC ---
PROGRESS NOTES Subjective Subjective Patient feeling better Lipase improved but still high. Objective Objective Vital Signs Date Time Temp Pulse Resp B/P (MAP) Pulse Ox O2 Delivery O2 Flow Rate FiO2 03/10/19 08:53 Room Air 03/10/19 07:40 98.0 84 16 157/93 (114) 98 98.0 Intake and Output 03/10/19 06:59 Intake Total 1340 ml Output Total 505 ml Balance 835 ml Intake Oral 240 ml IV Total 1100 ml Output Urine Total 500 ml Stool Total 5 ml Physical Exam Abdomen: Normal bowel sounds, Other (mild terder mid abd.) Heart: Regular rate Extremities: No edema General: Alert Lungs: Clear to auscultation Assessment Assessment Problems Medical Problems: (1) Acute pancreatitis Status: Acute (2) Alcoholic ketoacidosis Status: Acute (3) Alcoholism Status: Acute (4) Liver cirrhosis Status: Chronic 1. Acute pancreatitis. 2. Alcoholic ketoacidosis. 3. Thrombocytopenia. 4. Cirrhosis of the liver. 5. Moderate protein malnutrition. 6. Polysubstance abuse. Plan Plan of Care Continue NPO - D/W patient continue ProcalAmine recheck labs in am Increase activity Comment Review of Relevant I have reviewed the following items adam (where applicable) has been applied. Labs Laboratory Tests Test 03/09/19 04:50 03/10/19 03:50 Sodium Level 138 mmol/L (136-145) 138 mmol/L (136-145) Potassium Level 3.3 mmol/L (3.5-5.1) 3.8 mmol/L (3.5-5.1) Chloride Level 103 mmol/L (98-107) 102 mmol/L (98-107) Carbon Dioxide Level 24 mmol/L (21-32) 29 mmol/L (21-32) Anion Gap 11 (6-14) 7 (6-14) Blood Urea Nitrogen 5 mg/dL (8-26) 6 mg/dL (8-26) Creatinine 0.6 mg/dL (0.7-1.3) 0.6 mg/dL (0.7-1.3) Estimated GFR (Cockcroft-Gault) 169.3 169.3 Glucose Level 122 mg/dL (70-99) 115 mg/dL (70-99) Calcium Level 9.2 mg/dL (8.5-10.1) 9.3 mg/dL (8.5-10.1) Lipase 1075 U/L (73-393) 718 U/L (73-393) White Blood Count 2.6 x10^3/uL (4.0-11.0) Red Blood Count 4.25 x10^6/uL (4.30-5.70) Hemoglobin 12.4 g/dL (13.0-17.5) Hematocrit 36.8 % (39.0-53.0) Mean Corpuscular Volume 87 fL (79-100) Mean Corpuscular Hemoglobin 29 pg (25-35) Mean Corpuscular Hemoglobin Concent 34 g/dL (31-37) Red Cell Distribution Width 13.4 % (11.5-14.5) Platelet Count 118 x10^3/uL (140-400) Laboratory Tests Test 03/10/19 03:50 White Blood Count 2.6 x10^3/uL (4.0-11.0) Red Blood Count 4.25 x10^6/uL (4.30-5.70) Hemoglobin 12.4 g/dL (13.0-17.5) Hematocrit 36.8 % (39.0-53.0) Mean Corpuscular Volume 87 fL (79-100) Mean Corpuscular Hemoglobin 29 pg (25-35) Mean Corpuscular Hemoglobin Concent 34 g/dL (31-37) Red Cell Distribution Width 13.4 % (11.5-14.5) Platelet Count 118 x10^3/uL (140-400) Sodium Level 138 mmol/L (136-145) Potassium Level 3.8 mmol/L (3.5-5.1) Chloride Level 102 mmol/L (98-107) Carbon Dioxide Level 29 mmol/L (21-32) Anion Gap 7 (6-14) Blood Urea Nitrogen 6 mg/dL (8-26) Creatinine 0.6 mg/dL (0.7-1.3) Estimated GFR (Cockcroft-Gault) 169.3 Glucose Level 115 mg/dL (70-99) Calcium Level 9.3 mg/dL (8.5-10.1) Lipase 718 U/L (73-393) Medications Current Medications Sodium Chloride 1,000 ml @ 1,000 mls/hr Q1H IV Last administered on 03/07/19at 14:08; Start 03/07/19 at 13:49; Stop 03/07/19 at 14:48; Status DC Ondansetron HCl (Zofran) 4 mg 1X ONCE IV Last administered on 03/07/19at 14:08; Start 03/07/19 at 14:00; Stop 03/07/19 at 14:01; Status DC Famotidine (Pepcid Vial) 20 mg 1X ONCE IVP Last administered on 03/07/19at 14:08; Start 03/07/19 at 14:00; Stop 03/07/19 at 14:01; Status DC Multi-Ingredient Mouthwash/Gargle (Gi Cocktail) 20 ml 1X ONCE SWSW Last administered on 03/07/19at 14:08; Start 03/07/19 at 14:00; Stop 03/07/19 at 14:01; Status DC Dextrose/Lactated Ringer's 1,000 ml @ 999 mls/hr 1X ONCE IV Last administered on 03/07/19at 15:55; Start 03/07/19 at 15:00; Stop 03/07/19 at 16:00; Status DC Dextrose/Lactated Ringer's 1,000 ml @ 125 mls/hr 1X ONCE IV ; Start 03/07/19 at 15:00; Stop 03/07/19 at 22:59; Status Cancel Iohexol (Omnipaque 300 Mg/ml) 75 ml 1X ONCE IV Last administered on 03/07/19at 15:28; Start 03/07/19 at 15:15; Stop 03/07/19 at 15:16; Status DC Info (CONTRAST GIVEN -- Rx MONITORING) 1 each PRN DAILY PRN MC SEE COMMENTS; Start 03/07/19 at 15:15; Stop 03/09/19 at 15:14; Status DC Multivitamins 10 ml/Thiamine HCl 100 mg/Folic Acid 1 mg/Sodium Chloride 1,011.2 ml @ 1,000.088 mls/hr 1X ONCE IV Last administered on 03/07/19at 15:55; Start 03/07/19 at 15:15; Stop 03/07/19 at 16:15; Status DC Magnesium Sulfate 50 ml @ 25 mls/hr 1X ONCE IV Last administered on 03/07/19at 23:27; Start 03/07/19 at 15:30; Stop 03/07/19 at 17:29; Status DC Dextrose/Lactated Ringer's 1,000 ml @ 125 mls/hr 1X ONCE IV Last administered on 03/07/19 18:12; Start 03/07/19 at 16:30; Stop 03/08/19 at 00:29; Status DC Pantoprazole Sodium (PROTONIX VIAL for IV PUSH) 40 mg DAILYAC IVP Last ad ministered on 03/10/19 07:28; Start 03/08/19 at 07:30 Lorazepam (Ativan Inj) 0.5 mg PRN Q4HRS PRN IV ANXIETY / AGITATION Last administered on 03/07/19 23:27; Start 03/07/19 at 19:30 Clonidine HCl (Catapres Tts-2) 1 patch We TD Last administered on 03/07/19 21:32; Start 03/07/19 at 20:00 Hydralazine HCl (Apresoline Inj) 10 mg PRN Q4HRS PRN IVP ELEVATED BP, SEE COMMENTS Last administered on 03/07/19 21:32; Start 03/07/19 at 19:30 Ondansetron HCl (Zofran) 4 mg PRN Q4HRS PRN IV NAUSEA/VOMITING 1ST CHOICE Last administered on 03/10/19 07:28; Start 03/07/19 at 22:30 Amino Acids/ Glycerin/ Electrolytes 1,000 ml @ 80 mls/hr [id number] IV Last administered on 03/08/19 14:25; Start 03/08/19 at 13:00; Stop 03/09/19 at 01:29; Status DC Amino Acids/ Glycerin/ Electrolytes 1,000 ml @ 80 mls/hr [id number] IV Last administered on 03/09/19 02:24; Start 03/09/19 at 01:30; Stop 03/09/19 at 13 :59; Status DC Potassium Chloride/Water 100 ml @ 100 mls/hr Q1H IV Last administered on 03/09/19 15:44; Start 03/09/19 at 13:00; Stop 03/09/19 at 14:59; Status DC Fentanyl Citrate (Fentanyl 2ml Vial) 50 mcg QIDPRN PRN IV PAIN Last administered on 9/14/19at 08:53; Start 03/09/19 at 13:00 Prochlorperazine Edisylate (Compazine) 10 mg PRN Q6HRS PRN IV NAUSEA/VOMITING; Start 03/09/19 at 13:00 Amino Acids/ Glycerin/ Electrolytes 1,000 ml @ 80 mls/hr [id number] IV Last administered on 03/10/19at 06:16; Start 03/09/19 at 15:30 Active Scripts Active Pantoprazole Sodium (Pantoprazole Sodium) 40 Mg Tablet.dr 40 Mg PO DAILYAC 30 Days Vitals/I & O Vital Sign - Last 24 Hours 03/09/19 03/09/19 03/09/19 03/09/19 10:52 13:42 14:51 15:52 Temp 98.2 97.4 98.2 97.4 Pulse 103 89 Resp 20 18 B/P (MAP) 140/96 (111) 158/106 (123) Pulse Ox 99 98 O2 Delivery Room Air Room Air Room Air Room Air 03/09/19 03/09/19 03/09/19 03/09/19 19:42 20:00 20:19 21:13 Temp 98.4 98.4 Pulse 94 Resp 16 B/P (MAP) 150/82 (104) Pulse Ox 96 O2 Delivery Room Air Room Air Room Air Room Air 03/09/19 03/10/19 03/10/19 03/10/19 23:12 02:35 03:32 03:45 Temp 97.7 98.2 97.7 98.2 Pulse 69 81 Resp 16 16 B/P (MAP) 156/93 (114) 173/100 (124) Pulse Ox 100 100 O2 Delivery Room Air Room Air Room Air Room Air 03/10/19 03/10/19 07:40 08:53 Temp 98.0 98.0 Pulse 84 Resp 16 B/P (MAP) 157/93 (114) Pulse Ox 98 O2 Delivery Room Air Room Air Intake and Output 03/09/19 03/09/19 03/10/19 14:59 22:59 06:59 Intake Total 1340 ml Output Total 2 ml 3 ml 500 ml Balance 1338 ml -3 ml -500 ml TREVOR RIOS MD Mar 10, 2019 09:08
--- NOTE | 2019-03-10 11:23 | PDOC ---
G I PROGRESS NOTE Subjective Pain better, but still present. Physical Exam Lungs clear. RRR Abdomen soft, with epigastric tenderness. Review of Relevant I have reviewed the following items adam (where applicable) has been applied. Labs Laboratory Tests Test 03/09/19 04:50 03/10/19 03:50 Sodium Level 138 mmol/L (136-145) 138 mmol/L (136-145) Potassium Level 3.3 mmol/L (3.5-5.1) 3.8 mmol/L (3.5-5.1) Chloride Level 103 mmol/L (98-107) 102 mmol/L (98-107) Carbon Dioxide Level 24 mmol/L (21-32) 29 mmol/L (21-32) Anion Gap 11 (6-14) 7 (6-14) Blood Urea Nitrogen 5 mg/dL (8-26) 6 mg/dL (8-26) Creatinine 0.6 mg/dL (0.7-1.3) 0.6 mg/dL (0.7-1.3) Estimated GFR (Cockcroft-Gault) 169.3 169.3 Glucose Level 122 mg/dL (70-99) 115 mg/dL (70-99) Calcium Level 9.2 mg/dL (8.5-10.1) 9.3 mg/dL (8.5-10.1) Lipase 1075 U/L (73-393) 718 U/L (73-393) White Blood Count 2.6 x10^3/uL (4.0-11.0) Red Blood Count 4.25 x10^6/uL (4.30-5.70) Hemoglobin 12.4 g/dL (13.0-17.5) Hematocrit 36.8 % (39.0-53.0) Mean Corpuscular Volume 87 fL (79-100) Mean Corpuscular Hemoglobin 29 pg (25-35) Mean Corpuscular Hemoglobin Concent 34 g/dL (31-37) Red Cell Distribution Width 13.4 % (11.5-14.5) Platelet Count 118 x10^3/uL (140-400) Laboratory Tests Test 03/10/19 03:50 White Blood Count 2.6 x10^3/uL (4.0-11.0) Red Blood Count 4.25 x10^6/uL (4.30-5.70) Hemoglobin 12.4 g/dL (13.0-17.5) Hematocrit 36.8 % (39.0-53.0) Mean Corpuscular Volume 87 fL (79-100) Mean Corpuscular Hemoglobin 29 pg (25-35) Mean Corpuscular Hemoglobin Concent 34 g/dL (31-37) Red Cell Distribution Width 13.4 % (11.5-14.5) Platelet Count 118 x10^3/uL (140-400) Sodium Level 138 mmol/L (136-145) Potassium Level 3.8 mmol/L (3.5-5.1) Chloride Level 102 mmol/L (98-107) Carbon Dioxide Level 29 mmol/L (21-32) Anion Gap 7 (6-14) Blood Urea Nitrogen 6 mg/dL (8-26) Creatinine 0.6 mg/dL (0.7-1.3) Estimated GFR (Cockcroft-Gault) 169.3 Glucose Level 115 mg/dL (70-99) Calcium Level 9.3 mg/dL (8.5-10.1) Lipase 718 U/L (73-393) Lipase improved after "blip" yesterday. Vitals/I & O Vital Sign - Last 24 Hours 03/09/19 03/09/19 03/09/19 03/09/19 13:42 14:51 15:52 19:42 Temp 97.4 98.4 97.4 98.4 Pulse 89 94 Resp 18 16 B/P (MAP) 158/106 (123) 150/82 (104) Pulse Ox 98 96 O2 Delivery Room Air Room Air Room Air Room Air 03/09/19 03/09/19 03/09/19 03/09/19 20:00 20:19 21:13 23:12 Temp 97.7 97.7 Pulse 69 Resp 16 B/P (MAP) 156/93 (114) Pulse Ox 100 O2 Delivery Room Air Room Air Room Air Room Air 03/10/19 03/10/19 03/10/19 03/10/19 02:35 03:32 03:45 07:40 Temp 98.2 98.0 98.2 98.0 Pulse 81 84 Resp 16 16 B/P (MAP) 173/100 (124) 157/93 (114) Pulse Ox 100 98 O2 Delivery Room Air Room Air Room Air Room Air 03/10/19 03/10/19 03/10/19 08:00 08:53 10:28 O2 Delivery Room Air Room Air Room Air Intake and Output 03/09/19 03/09/19 03/10/19 14:59 22:59 06:59 Intake Total 1340 ml Output Total 2 ml 3 ml 500 ml Balance 1338 ml -3 ml -500 ml Problem List Problems Medical Problems: (1) Acute pancreatitis Status: Acute (2) Alcoholic ketoacidosis Status: Acute (3) Alcoholism Status: Acute (4) Liver cirrhosis Status: Chronic Assessment Most likely alcoholic pancreatitis with relapse. Is improving. Plan of Care: Continue current Tx, Mgmt Plan of Care Note As before, stop drinking. This will not totally stop attacks, but they will be milder and fewer off booze. TREVOR JOHNSON MD Mar 10, 2019 11:23
[2019-03-10] MEDS: hydrALAZINE 20 MG/ML VIAL. IVP PRN (13:09)
[2019-03-11] MEDS: fentaNYL PF VIAL 100 MCG/2 ML VIAL IV PRN ×2 (03:20→09:23)
[2019-03-11 03:40] VITALS: BP 155/94
[2019-03-11 07:00] VITALS: BP 147/90
[2019-03-11] MEDS: AMINO AC 3%/ELECTROLYTE/GLYCER 1,000 ML IV SCH (07:06)
[2019-03-11] MEDS: PANTOPRAZOLE IV PUSH 40 MG VIAL. IVP SCH (07:23)
--- NOTE | 2019-03-11 08:42 | PDOC ---
PROGRESS NOTES Subjective Subjective Patient feeling better. Lipase still slightly elevated. Patient nontender in abd today. clear liq trial today. Objective Objective Vital Signs Date Time Temp Pulse Resp B/P (MAP) Pulse Ox O2 Delivery O2 Flow Rate FiO2 03/11/19 07:28 Room Air 03/11/19 07:00 98.2 102 18 147/90 (109) 98 98.2 Intake and Output 03/11/19 06:59 Intake Total 0 ml Output Total 125 ml Balance -125 ml Intake Oral 0 ml Output Urine Total 125 ml # Voids 1 Physical Exam Abdomen: Normal bowel sounds, No tenderness Heart: Regular rate Extremities: No edema General: Alert Lungs: Clear to auscultation Assessment Assessment Problems Medical Problems: (1) Acute pancreatitis Status: Acute (2) Alcoholic ketoacidosis Status: Acute (3) Alcoholism Status: Acute (4) Liver cirrhosis Status: Chronic 1. Acute pancreatitis. 2. Alcoholic ketoacidosis. 3. Thrombocytopenia. 4. Cirrhosis of the liver. 5. Moderate protein malnutrition. 6. Polysubstance abuse. Plan Plan of Care Clears today continue ProcalAmine recheck labs in am Increase activity Comment Review of Relevant I have reviewed the following items adam (where applicable) has been applied. Labs Laboratory Tests Test 03/10/19 03:50 03/11/19 03:40 White Blood Count 2.6 x10^3/uL (4.0-11.0) Red Blood Count 4.25 x10^6/uL (4.30-5.70) Hemoglobin 12.4 g/dL (13.0-17.5) Hematocrit 36.8 % (39.0-53.0) Mean Corpuscular Volume 87 fL (79-100) Mean Corpuscular Hemoglobin 29 pg (25-35) Mean Corpuscular Hemoglobin Concent 34 g/dL (31-37) Red Cell Distribution Width 13.4 % (11.5-14.5) Platelet Count 118 x10^3/uL (140-400) Sodium Level 138 mmol/L (136-145) Potassium Level 3.8 mmol/L (3.5-5.1) Chloride Level 102 mmol/L (98-107) Carbon Dioxide Level 29 mmol/L (21-32) Anion Gap 7 (6-14) Blood Urea Nitrogen 6 mg/dL (8-26) Creatinine 0.6 mg/dL (0.7-1.3) Estimated GFR (Cockcroft-Gault) 169.3 Glucose Level 115 mg/dL (70-99) Calcium Level 9.3 mg/dL (8.5-10.1) Lipase 718 U/L (73-393) 888 U/L (73-393) Laboratory Tests Test 03/11/19 03:40 Lipase 888 U/L (73-393) Medications Current Medications Sodium Chloride 1,000 ml @ 1,000 mls/hr Q1H IV Last administered on 03/07/19at 14:08; Start 03/07/19 at 13:49; Stop 03/07/19 at 14:48; Status DC Ondansetron HCl (Zofran) 4 mg 1X ONCE IV Last administered on 03/07/19at 14:08; Start 03/07/19 at 14:00; Stop 03/07/19 at 14:01; Status DC Famotidine (Pepcid Vial) 20 mg 1X ONCE IVP Last administered on 03/07/19at 14:08; Start 03/07/19 at 14:00; Stop 03/07/19 at 14:01; Status DC Multi-Ingredient Mouthwash/Gargle (Gi Cocktail) 20 ml 1X ONCE SWSW Last adm inistered on 03/07/19at 14:08; Start 03/07/19 at 14:00; Stop 03/07/19 at 14:01; Status DC Dextrose/Lactated Ringer's 1,000 ml @ 999 mls/hr 1X ONCE IV Last administered on 03/07/19at 15:55; Start 03/07/19 at 15:00; Stop 03/07/19 at 16:00; Status DC Dextrose/Lactated Ringer's 1,000 ml @ 125 mls/hr 1X ONCE IV ; Start 03/07/19 at 15:00; Stop 03/07/19 at 22:59; Status Cancel Iohexol (Omnipaque 300 Mg/ml) 75 ml 1X ONCE IV Last administered on 03/07/19at 15:28; Start 03/07/19 at 15:15; Stop 03/07/19 at 15:16; Status DC Info (CONTRAST GIVEN -- Rx MONITORING) 1 each PRN DAILY PRN MC SEE COMMENTS; Start 03/07/19 at 15:15; Stop 03/09/19 at 15:14; Status DC Multivitamins 10 ml/Thiamine HCl 100 mg/Folic Acid 1 mg/Sodium Chloride 1,011.2 ml @ 1,000.088 mls/hr 1X ONCE IV Last administered on 03/07/19at 15:55; Start 03/07/19 at 15:15; Stop 03/07/19 at 16:15; Status DC Magnesium Sulfate 50 ml @ 25 mls/hr 1X ONCE IV Last administered on 03/07/19 23:27; Start 03/07/19 at 15:30; Stop 03/07/19 at 17:29; Status DC Dextrose/Lactated Ringer's 1,000 ml @ 125 mls/hr 1X ONCE IV Last administered on 03/07/19 18:12; Start 03/07/19 at 16:30; Stop 03/08/19 at 00:29; Status DC Pantoprazole Sodium (PROTONIX VIAL for IV PUSH) 40 mg DAILYAC IVP Last administered on 03/11/19at 07:24; Start 03/08/19 at 07:30 Lorazepam (Ativan Inj) 0.5 mg PRN Q4HRS PRN IV ANXIETY / AGITATION Last administered on 03/07/19 23:27; Start 03/07/19 at 19:30 Clonidine HCl (Catapres Tts-2) 1 patch We TD Last administered on 03/07/19 21:32; Start 03/07/19 at 20:00 Hydralazine HCl (Apresoline Inj) 10 mg PRN Q4HRS PRN IVP ELEVATED BP, SEE COMMENTS Last administered on 03/10/19 13:09; Start 03/07/19 at 19:30 Ondansetron HCl (Zofran) 4 mg PRN Q4HRS PRN IV NAUSEA/VOMITING 1ST CHOICE Last administered on 03/10/19 07:28; Start 03/07/19 at 22:30 Amino Acids/ Glycerin/ Electrolytes 1,000 ml @ 80 mls/hr [id number] IV Last administered on 03/08/19 14:25; Start 03/08/19 at 13:00; Stop 03/09/19 at 01:29; Status DC Amino Acids/ Glycerin/ Electrolytes 1,000 ml @ 80 mls/hr [id number] IV Last administered on 03/09/19at 02:24; Start 03/09/19 at 01:30; Stop 03/09/19 at 13:59; Status DC Potassium Chloride/Water 100 ml @ 100 mls/hr Q1H IV Last administered on 03/09/19at 15:44; Start 03/09/19 at 13:00; Stop 03/09/19 at 14:59; Status DC Fentanyl Citrate (Fentanyl 2ml Vial) 50 mcg QIDPRN PRN IV PAIN Last administered on 03/11/19at 03:20; Start 03/09/19 at 13:00 Prochlorperazine Edisylate (Compazine) 10 mg PRN Q6HRS PRN IV NAUSEA/VOMITING, 2nd CHOICE; Start 03/09/19 at 13:00 Amino Acids/ Glycerin/ Electrolytes 1,000 ml @ 80 mls/hr [id number] IV Last administered on 03/11/19at 07:06; Start 03/09/19 at 15:30 Active Scripts Active Pantoprazole Sodium (Pantoprazole Sodium) 40 Mg Tablet.dr 40 Mg PO DAILYAC 30 Days Vitals/I & O Vital Sign - Last 24 Hours 03/10/19 03/10/19 03/10/19 03/10/19 08:53 10:28 11:00 13:09 Temp 97.9 97.9 Pulse 88 85 Resp 16 B/P (MAP) 170/100 (123) 161/89 Pulse Ox 100 O2 Delivery Room Air Room Air Room Air 03/10/19 03/10/19 03/10/19 03/10/19 13:45 15:10 15:25 15:49 Temp 98.0 98.0 Pulse 106 102 Resp 20 B/P (MAP) 142/92 (109) 139/98 (112) Pulse Ox 100 98 O2 Delivery Room Air Room Air Room Air 03/10/19 03/10/19 03/10/19 03/10/19 19:38 20:00 21:18 23:06 Temp 98.5 98.5 Pulse 96 Resp 20 B/P (MAP) 156/91 (112) Pulse Ox 100 100 O2 Delivery Room Air Room Air Room Air Room Air 03/10/19 03/11/19 03/11/19 03/11/19 23:46 03:20 03:40 07:00 Temp 98.1 97.7 98.2 98.1 97.7 98.2 Pulse 88 89 102 Resp 18 18 18 B/P (MAP) 149/90 (109) 155/94 (114) 147/90 (109) Pulse Ox 99 99 98 O2 Delivery Room Air Room Air Room Air Room Air 03/11/19 03/11/19 07:13 07:28 O2 Delivery Room Air Room Air Intake and Output 03/10/19 03/10/19 03/11/19 14:59 22:59 06:59 Intake Total 0 ml Output Total 125 ml Balance -125 ml 0 ml TREVOR RIOS MD Mar 11, 2019 08:42
[2019-03-11 11:00] VITALS: BP 137/89
--- NOTE | 2019-03-11 11:56 | PDOC ---
G I PROGRESS NOTE Subjective Feeling better. Wants real food. Physical Exam Lungs clear. RRR Abdomen soft, not tender nor distended. Review of Relevant I have reviewed the following items adam (where applicable) has been applied. Labs Laboratory Tests Test 03/10/19 03:50 03/11/19 03:40 White Blood Count 2.6 x10^3/uL (4.0-11.0) Red Blood Count 4.25 x10^6/uL (4.30-5.70) Hemoglobin 12.4 g/dL (13.0-17.5) Hematocrit 36.8 % (39.0-53.0) Mean Corpuscular Volume 87 fL (79-100) Mean Corpuscular Hemoglobin 29 pg (25-35) Mean Corpuscular Hemoglobin Concent 34 g/dL (31-37) Red Cell Distribution Width 13.4 % (11.5-14.5) Platelet Count 118 x10^3/uL (140-400) Sodium Level 138 mmol/L (136-145) Potassium Level 3.8 mmol/L (3.5-5.1) Chloride Level 102 mmol/L (98-107) Carbon Dioxide Level 29 mmol/L (21-32) Anion Gap 7 (6-14) Blood Urea Nitrogen 6 mg/dL (8-26) Creatinine 0.6 mg/dL (0.7-1.3) Estimated GFR (Cockcroft-Gault) 169.3 Glucose Level 115 mg/dL (70-99) Calcium Level 9.3 mg/dL (8.5-10.1) Lipase 718 U/L (73-393) 888 U/L (73-393) Laboratory Tests Test 03/11/19 03:40 Lipase 888 U/L (73-393) Vitals/I & O Vital Sign - Last 24 Hours 03/10/19 03/10/19 03/10/19 03/10/19 13:09 13:45 15:10 15:25 Temp 98.0 98.0 Pulse 85 106 102 Resp 20 B/P (MAP) 161/89 142/92 (109) 139/98 (112) Pulse Ox 100 98 O2 Delivery Room Air Room Air 03/10/19 03/10/19 03/10/19 03/10/19 15:49 19:38 20:00 21:18 Temp 98.5 98.5 Pulse 96 Resp 20 B/P (MAP) 156/91 (112) Pulse Ox 100 O2 Delivery Room Air Room Air Room Air Room Air 03/10/19 03/10/19 03/11/19 03/11/19 23:06 23:46 03:20 03:40 Temp 98.1 97.7 98.1 97.7 Pulse 88 89 Resp 18 18 B/P (MAP) 149/90 (109) 155/94 (114) Pulse Ox 100 99 99 O2 Delivery Room Air Room Air Room Air Room Air 03/11/19 03/11/19 03/11/19 03/11/19 07:00 07:13 07:28 09:25 Temp 98.2 98.2 Pulse 102 Resp 18 B/P (MAP) 147/90 (109) Pulse Ox 98 O2 Delivery Room Air Room Air Room Air Room Air 03/11/19 10:57 O2 Delivery Room Air Intake and Output 03/10/19 03/10/19 03/11/19 15:00 23:00 07:00 Intake Total 0 ml Output Total 125 ml Balance -125 ml 0 ml Problem List Problems Medical Problems: (1) Acute pancreatitis Status: Acute (2) Alcoholic ketoacidosis Status: Acute (3) Alcoholism Status: Acute (4) Liver cirrhosis Status: Chronic Assessment Pancreatitis, probably alcoholic, improving. Gallstones. Plan of Care: Continue current Tx, Mgmt Plan of Care Note Agree with try diet. Advance as tolerated. Stop drinking. Consider elective swetha. TREVOR JOHNSON MD Mar 11, 2019 11:56
--- NOTE | 2019-03-11 13:52 | NUR ---
Pt transferring to rm [id number]. Called and gave report to DAYAMI Garner.
--- NOTE | 2019-03-11 14:20 | NUR ---
PATIENT ARRIVED ON THE UNIT ALERT AND VERBALLY RESPONSIVE, DENIES PAIN AT THIS TIME BUT WANTS TO EAT REGULAR FOOD. AFTER READING DR. GA' NOTE FROM TODAY I WILL ADVANCE PATIENTS' DIET SLOWLY, PATIENT ASKING FOR SHERBERT ICE CREAM, WILL OFFER. PATIENT HAS NO IV ACCESS AT THIS TIME BUT 3 NURSES HAVE TRIED TO START HIS IV ON THE 6TH FLOOR INCLUDING THE NURSING [employer]INC MINER BLASTING AND THEY WERE UNSUCCESSFUL, NURSING [employer]ER BLASTING INFORMED THIS POLICE JUSTICE THAT SHE WOULD COME BACK AND TRY AGAIN.
[2019-03-11 14:31] VITALS: BP 156/83
[2019-03-11 19:00] VITALS: BP 135/77
[2019-03-11] MEDS ORDERED: LORazepam 1 MG TABLET PO PRN (22:15)
[2019-03-11] MEDS ORDERED: ONDANSETRON ODT 4 MG TAB.RAPDIS. PO PRN (22:15)
[2019-03-11 23:00] VITALS: BP 146/84
[2019-03-11] MEDS: HYDROcodone/APAP 7.5/325MG 1 TAB TABLET PO PRN (23:18)
[2019-03-12 03:00] VITALS: BP 130/78
[2019-03-12] MEDS: HYDROcodone/APAP 7.5/325MG 1 TAB TABLET PO PRN ×2 (03:54→09:14)
[2019-03-12 07:00] VITALS: BP 143/83
[2019-03-12] MEDS ORDERED: PANTOPRAZOLE 40 MG TABLET.DR. PO SCH (07:30)
[2019-03-12 08:09] LABS: CALCIUM 9.5 mg/dL (8.5-10.1); CREATININE 0.7 mg/dL (0.7-1.3); GFR 141.7; POTASSIUM 3.3 mmol/L (3.5-5.1)
[2019-03-12] MEDS ORDERED: CLON1PAT6 TD (09:15)
[2019-03-12] MEDS ORDERED: PANT40TA77 PO (09:15)
[2019-03-12 11:00] VITALS: BP 146/78
--- NOTE | 2019-03-12 12:22 | PDOC ---
Subjective: Subjective: Ate dinner last night and breakfast this morning w/o issue. Denies pain. Say Dr. Shook told him he could go home. Objective: Objective: Reviewed w/ nurse. Vital Signs: Vital Signs Date Time Temp Pulse Resp B/P (MAP) Pulse Ox O2 Delivery O2 Flow Rate FiO2 03/12/19 11:00 98.3 81 17 146/78 (100) 100 Room Air 98.3 Labs: Laboratory Tests Test 03/12/19 07:34 Sodium Level 139 mmol/L Potassium Level 3.3 mmol/L Chloride Level 103 mmol/L Carbon Dioxide Level 27 mmol/L Anion Gap 9 Blood Urea Nitrogen 11 mg/dL Creatinine 0.7 mg/dL Estimated GFR (Cockcroft-Gault) 141.7 Glucose Level 104 mg/dL Calcium Level 9.5 mg/dL Lipase 773 U/L PE: GEN: NAD - dressed to leave LUNGS: CTAB HEART: RRR ABD: soft, non-tender NEURO/PSYCH: A & O �3 A/P: Recurrent pancreatitis Alcohol abuse Cholelithiasis -- DC per primary. Stop alcohol. Consider elective cholecystectomy as discussed last admission. Outpt screening colonoscopy. LESLIE AEYRS Mar 12, 2019 12:22
--- NOTE | 2019-03-12 13:25 | NUR ---
pt discharged home with resource information for substance abuse abstinence. meds and follow up reviewed. scripts for protonix and clonidine patch called to [facility] [address]. pt stable upon dc. pt had no IV access at time of discharge.
--- NOTE | 2019-03-12 23:52 | DS ---
DATE OF DISCHARGE: 03/12/2019 ADMITTING DIAGNOSIS: Acute pancreatitis. SECONDARY DIAGNOSES: 1. Alcoholic ketoacidosis. 2. Thrombocytopenia. 3. Cirrhosis of liver. 4. Moderate protein malnutrition. 4. Polysubstance abuse with PCP and current drug screen. HISTORY OF PRESENT ILLNESS AND HOSPITAL COURSE: This patient is a 53-year-old -[place] male who has had recurrent admissions for alcoholic pancreatitis, was admitted with increasing pain and inability to care for himself or tolerate diet. He was found to have a significant acidosis with pH down to 7.17, consistent with alcoholic ketoacidosis. He was admitted for IV fluids and withdrawal precautions and made n.p.o. due to his ongoing pancreatitis. Initially, the patient was started on clear liquids, but had recurrent pancreatitis symptoms. Therefore, he was made n.p.o. and started on procalamine. After several days of n.p.o. status, the patient's symptoms improved and began tolerating diet and plans to discharge the patient to home were made. The patient did have hypertension during his hospital stay and was started on clonidine TTS 2 patch. He was also given Protonix prophylaxis for stress ulcers with history of esophageal varices. These prescriptions were written. The patient was discharged home on these medications. Social work evaluated the patient for alcohol rehabilitation. He was strongly stressed on not to use alcohol anymore and warned that he could have recurrent pain and pancreatitis or GI bleeding that could result in . He continued to use alcohol. DISCHARGE INSTRUCTIONS: He will follow up in the office in 1-2 weeks for further evaluation. TREVOR RIOS MD DR: COLBY/malka JOB#: [id number] / [id number]
== END 2019-03-12 13:27 | disposition home or self-care (01) | DRG 439 ==
LOC: ER 13:09 → 6 SOUTH 16:10 → 5 SOUTH 03-11 14:10
PROVIDERS: ADMIT Family Medicine; ATTEND Family Medicine
DX: K85.20 Alcohol induced acute pancreatitis without necrosis or infection (principal); E87.2 Acidosis; E44.0 Moderate protein-calorie malnutrition; K74.60 Unspecified cirrhosis of liver; K86.1 Other chronic pancreatitis; Z68.20 Body mass index [BMI] 20.0-20.9, adult; K21.9 Gastro-esophageal reflux disease without esophagitis; F10.20 Alcohol dependence, uncomplicated; D69.6 Thrombocytopenia, unspecified; D73.1 Hypersplenism; I10 Essential (primary) hypertension; K80.20 Calculus of gallbladder without cholecystitis without obstruction; K76.0 Fatty (change of) liver, not elsewhere classified; F19.10 Other psychoactive substance abuse, uncomplicated; D72.819 Decreased white blood cell count, unspecified; Z87.891 Personal history of nicotine dependence
CPT/HCPCS: 36415; 36600; 74177; 80048; 80053; 80307; 81001; 82010; 82805; 83605; 83690; 83735; 84484; 85025; 85027; 93005; 96361; 96365; 96368; 96375; C9113; G0480; J0360; J2060; J2405; J3010; J3475; J3480; J3490; J7030; Q9967; 99291-25; G0378

== ENCOUNTER 2019-08-31 20:32 | Emergency (ER) | payer MEDICARE ==
[~2019-08-31] VITALS: Ht 162.6 cm; Wt 53.6 kg
[~2019-08-31 20:32] MED LIST changes: +CLON1PAT6 TD
[2019-08-31 21:07] LABS: BASO % 1 % (0-3); EOS # 0.1 x10^3/uL (0.0-0.7); EOS % 3 % (0-3); HEMATOCRIT 38.3 % (39.0-53.0); LYMPH # 1.7 x10^3/uL (1.0-4.8); LYMPH % 39 % (24-48); MEAN CORPUSCULAR HEMOGLOBIN 30 pg (25-35); MEAN CORPUSCULAR HGB CONC 34 g/dL (31-37); MEAN CORPUSCULAR VOLUME 89 fL (79-100); MONO # 0.3 x10^3/uL (0.0-1.1); MONO % 8 % (0-9); NEUT # 2.2 x10^3/uL (1.8-7.7); NEUT % 51 % (31-73); PLATELET COUNT 122 x10^3/uL (140-400); RED BLOOD COUNT 4.31 x10^6/uL (4.30-5.70); RED CELL DISTRIBUTION WIDTH 15.6 % (11.5-14.5); WHITE BLOOD COUNT 4.4 x10^3/uL (4.0-11.0)
[2019-08-31 21:15] LABS: CALCIUM 8.9 mg/dL (8.5-10.1); CREATININE 0.7 mg/dL (0.7-1.3); GFR 141.2; POTASSIUM 3.1 mmol/L (3.5-5.1)
[2019-08-31 21:21] LABS: ALBUMIN 3.4 g/dL (3.4-5.0); ALBUMIN/GLOBULIN RATIO 0.8 (1.0-1.7); TOTAL BILIRUBIN 0.5 mg/dL (0.2-1.0); TOTAL PROTEIN 7.9 g/dL (6.4-8.2)
[2019-08-31] MEDS ORDERED: LIDO:MAALOX 1:1 20 ML SINGLE DOSE. SWSW ONE (21:30)
[2019-08-31] MEDS ORDERED: MORPHINE SULFATE 4 MG/ML VIAL. IV ONE (21:30)
[2019-08-31] MEDS ORDERED: ONDANSETRON PF 4 MG/2 ML VIAL. IV ONE (21:30)
[2019-08-31] MEDS ORDERED: FAMOTIDINE 20 MG/2 ML VIAL IVP ONE (21:30)
[2019-08-31] MEDS ORDERED: MULTIVIT INFUSN,ADULT 4,VIT K 10 ML, THIAMINE INJ 100 MG, FOLIC ACID INJ 1 MG in IV NOR... IV ONE (22:00)
[2019-08-31 22:22] LABS: BILIRUBIN,URINE NEGATIVE (NEG); CLARITY,URINE CLEAR; COLOR,URINE YELLOW; NITRITE,URINE NEGATIVE (NEG); PROTEIN,URINE NEGATIVE (NEG-TRACE)
[2019-08-31 22:27] LABS: BARBITURATES NEG (NEG); BENZODIAZEPINES NEG (NEG); CANNABINOIDS NEG (NEG); COCAINE NEG (NEG); METHADONE NEG (NEG); OPIATES POS (NEG); PHENCYCLIDINE POS (NEG)
[2019-08-31 22:28] LABS: AMPHETAMINE/METHAMPHETAMINE NEG (NEG)
[2019-08-31 22:29] LABS: BACTERIA,URINE 0 /HPF (0-FEW); RBC,URINE OCC /HPF (0-2); WBC,URINE 0 /HPF (0-4)
[2019-08-31 22:30] LABS: SQUAMOUS EPITHELIAL CELL,UR OCC /LPF
--- NOTE | 2019-09-01 00:15 | PHYS DOC ---
Past Medical History Past Medical History: GERD, Pancreatitis, Other Additional Past Medical Histor: SHINGLES Past Surgical History: Other Additional Past Surgical Histo: PLATE/SCREWS RIGT FEMUR AND RIGHT HUMERUS Smoking Status: Former Smoker Alcohol Use: Heavy Additional Information: DRINKS 2 PINTS OF GIN DAILY Drug Use: None Adult General Chief Complaint Chief Complaint: ABDOMINAL PAIN HPI HPI Patient is a 54 year old AA male who presents to the ER with complaints of epigastric abdominal pain after drinking 3 pints of gin today. Patient states that he has vomited 3 times, he states that his vomit was very sour and was b right yellow. He denies any blood in his vomit. Patient denies any lower abdominal pain, diarrhea, fever, cough, shortness of breath, chest pain, palpitations, headache, numbness, or tingling. Pt states he has felt weak all over today and reports a decreased appetite. He denies any illicit drug use. He currently rates his pain a 9/10 on the pain scale, he denies any alleviating or exacerbating factors and states that is feels like a constant throbbing sensation. Review of Systems Review of Systems Constitutional: Denies fever or chills [] Eyes: Denies redness, or eye pain [] HENT: Denies nasal congestion or sore throat [] Respiratory: Denies cough or shortness of breath [] Cardiovascular: No additional information not addressed in HPI [] GI: see HPI : Denies dysuria or hematuria [] Musculoskeletal: Denies back pain or joint pain [] Integument: Denies rash or skin lesions [] Neurologic: Denies headache, focal weakness or sensory changes [] All other systems were reviewed and found to be within normal limits, except as documented in this note. Current Medications Current Medications Current Medications Medications (Trade) Dose Ordered Sig/Elana Start Time Stop Time Status Last Admin Dose Admin Famotidine (Pepcid Vial) 20 mg 1X ONCE 08/31/19 21:30 08/31/19 21:31 DC 08/31/19 21:12 20 MG Morphine Sulfate (Morphine Sulfate) 4 mg 1X ONCE 08/31/19 21:30 08/31/19 21:31 DC 08/31/19 21:11 4 MG Multi-Ingredient Mouthwash/Gargle (Gi Cocktail) 20 ml 1X ONCE 08/31/19 21:30 08/31/19 21:31 DC 08/31/19 21:16 20 ML Multivitamins 10 ml/Thiamine HCl 100 mg/Folic Acid 1 mg/Sodium Chloride 1,011.2 ml @ 1,000.088 mls/hr 1X ONCE 08/31/19 22:00 08/31/19 23:00 DC 08/31/19 21:33 1,000.088 MLS/HR Ondansetron HCl (Zofran) 4 mg 1X ONCE 08/31/19 21:30 08/31/19 21:31 DC 08/31/19 21:16 4 MG Allergies Allergies Allergies Coded Allergies Type Severity Reaction Last Updated Verified No Known Drug Allergies 11/06/17 No Physical Exam Physical Exam Constitutional: Well developed, well nourished, no acute distress, intoxicated HENT: Normocephalic, atraumatic, bilateral external ears normal, oropharynx moist, no oral exudates, nose normal. [] Eyes: PERRLA, EOMI, conjunctiva normal, no discharge. [] Neck: Normal range of motion, no stridor. [] Cardiovascular:Heart rate regular rhythm Lungs & Thorax: Bilateral breath sounds clear to auscultation, Respirations even and unlabored, no retractions, no respiratory distress [] Abdomen: Bowel sounds normal, soft, epigastric TTP, no rebound tenderness, no masses, no pulsatile masses. [] Skin: Warm, dry, no erythema, no rash. [] Extremities: No cyanosis, ROM intact Neurologic: Alert and oriented X 3, no focal deficits noted. [] Psychologic: Affect normal, judgement normal, mood normal. [] Current Patient Data Vital Signs Vital Signs Date Time Temp Pulse Resp B/P (MAP) Pulse Ox O2 Delivery O2 Flow Rate FiO2 08/31/19 21:36 97 Room Air 08/31/19 21:11 20 08/31/19 20:33 97.8 107 152/81 (104) 97.8 Lab Values Laboratory Tests Test 08/31/19 20:50 08/31/19 22:10 White Blood Count 4.4 x10^3/uL (4.0-11.0) Red Blood Count 4.31 x10^6/uL (4.30-5.70) Hemoglobin 13.0 g/dL (13.0-17.5) Hematocrit 38.3 % (39.0-53.0) L Mean Corpuscular Volume 89 fL (79-100) Mean Corpuscular Hemoglobin 30 pg (25-35) Mean Corpuscular Hemoglobin Concent 34 g/dL (31-37) Red Cell Distribution Width 15.6 % (11.5-14.5) H Platelet Count 122 x10^3/uL (140-400) L Neutrophils (%) (Auto) 51 % (31-73) Lymphocytes (%) (Auto) 39 % (24-48) Monocytes (%) (Auto) 8 % (0-9) Eosinophils (%) (Auto) 3 % (0-3) Basophils (%) (Auto) 1 % (0-3) Neutrophils # (Auto) 2.2 x10^3/uL (1.8-7.7) Lymphocytes # (Auto) 1.7 x10^3/uL (1.0-4.8) Monocytes # (Auto) 0.3 x10^3/uL (0.0-1.1) Eosinophils # (Auto) 0.1 x10^3/uL (0.0-0.7) Basophils # (Auto) 0.0 x10^3/uL (0.0-0.2) Sodium Level 141 mmol/L (136-145) Potassium Level 3.1 mmol/L (3.5-5.1) L Chloride Level 99 mmol/L (98-107) Carbon Dioxide Level 25 mmol/L (21-32) Anion Gap 17 (6-14) H Blood Urea Nitrogen 10 mg/dL (8-26) Creatinine 0.7 mg/dL (0.7-1.3) Estimated GFR (Cockcroft-Gault) 141.2 BUN/Creatinine Ratio 14 (6-20) Glucose Level 101 mg/dL (70-99) H Calcium Level 8.9 mg/dL (8.5-10.1) Total Bilirubin 0.5 mg/dL (0.2-1.0) Aspartate Amino Transferase (AST) 77 U/L (15-37) H Alanine Aminotransferase (ALT) 31 U/L (16-63) Alkaline Phosphatase 115 U/L (46-116) Total Protein 7.9 g/dL (6.4-8.2) Albumin 3.4 g/dL (3.4-5.0) Albumin/Globulin Ratio 0.8 (1.0-1.7) L Amylase Level 82 U/L (25-115) Lipase 276 U/L (73-393) Ethyl Alcohol Level 389 mg/dL (0-10) H Urine Collection Type Void Urine Color Yellow Urine Clarity Clear Urine pH 6.0 Urine Specific [place] 1.010 Urine Protein Negative mg/dL (NEG-TRACE) Urine Glucose (UA) Negative mg/dL (NEG) Urine Ketones (Stick) Negative mg/dL (NEG) Urine Blood Negative (NEG) Urine Nitrite Negative (NEG) Urine Bilirubin Negative (NEG) Urine Urobilinogen Dipstick 1.0 mg/dL (0.2 mg/dL) Urine Leukocyte Esterase Negative (NEG) Urine RBC Occ /HPF (0-2) Urine WBC 0 /HPF (0-4) Urine Squamous Epithelial Cells Occ /LPF Urine Bacteria 0 /HPF (0-FEW) Urine Opiates Screen Pos (NEG) Urine Methadone Screen Neg (NEG) Urine Barbiturates Neg (NEG) Urine Phencyclidine Screen Pos (NEG) Urine Amphetamine/Methamphetamine Neg (NEG) Urine Benzodiazepines Screen Neg (NEG) Urine Cocaine Screen Neg (NEG) Urine Cannabinoids Screen Neg (NEG) Urine Ethyl Alcohol Pos (NEG) Laboratory Tests 08/31/19 20:50 Laboratory Tests 08/31/19 20:50 EKG EKG [] Radiology/Procedures Radiology/Procedures [] Course & Med Decision Making Course & Med Decision Making Pertinent Labs and Imaging studies reviewed. (See chart for details) Patient is a 54-year-old -[place] male who presented to the emergency room with complaints of epigastric pain, nausea, vomiting, and alcohol intoxi cation. Patient reported a history of pancreatitis. His CBC was unremarkable, CMP revealed a potassium of 3.1, glucose of 101, AST of 77, a normal amylase of 82, and a normal lipase of 276. His urinalysis was not concerning for a urinary tract infection, his urine drug screen was positive for PCP, opiates, and alcohol. The patient's alcohol level was 389. He was given a banana bag, 20 mg of Pepcid IV, 4 mg of Zofran IV, and a GI cocktail in the emergency department. He reported relief of his epigastric pain after these medications. Patient was given a sandwich in the department and tolerated p.o. fluids and food without difficulty. His vital signs were stable throughout his visit. Patient was advised to discontinue use of illicit drugs and to stop drinking alcohol. Follow-up with his primary care doctor next week, return to the ER symptoms worsen. Pt verbalized an understanding of home care, medications, follow-up, and return to ED instructions and was in agreement with the plan of care. [] Dragon Disclaimer Dragon Disclaimer This electronic medical record was generated, in whole or in part, using a voice recognition dictation system. Departure Departure Impression: Primary Impression: Polysubstance abuse Additional Impressions: Alcohol intoxication Epigastric abdominal pain Disposition: HOME, SELF-CARE Condition: STABLE Referrals: TREVOR SHOOK MD (PCP) Patient Instructions: Abdominal Pain (Nonspecific), Alcohol Intoxication, [id number], Substance Abuse-Brief Additional Instructions: Stop drinking alcohol. Increase clear fluids. Follow up with Dr. Shook next week. Return to the ER if symptoms worsen. Problem Qualifiers Additional Impressions: Alcohol intoxication Complication of substance-induced condition: uncomplicated Qualified Codes: F10.920 - Alcohol use, unspecified with intoxication, uncomplicated FLORIN CUNNINGHAM APRN Sep 01, 2019 00:14
[2019-09-01 00:23] VITALS: BP 156/82
== END 2019-09-01 00:29 | disposition home or self-care (01) ==
LOC: ER 20:32
DX: F19.10 Other psychoactive substance abuse, uncomplicated (principal); F10.229 Alcohol dependence with intoxication, unspecified; Y90.8 Blood alcohol level of 240 mg/100 ml or more; R10.13 Epigastric pain; K21.9 Gastro-esophageal reflux disease without esophagitis; Z87.891 Personal history of nicotine dependence
CPT/HCPCS: 36415; 80053; 80307; 81001; 82150; 83690; 85025; 96365; 96375; 99285; G0480; J2270; J2405; J3411; J3490; J7030

== ENCOUNTER 2019-11-01 15:08 | Emergency (ER) | payer MEDICARE ==
[~2019-11-01] VITALS: Ht 162.6 cm; Wt 58.1 kg
[~2019-11-01 15:08] MED LIST changes: +ACET325T9 PO; +FOLI0.8C PO; +LISI1TAB23 PO; +THIA100T57 PO
[2019-11-01 15:26] LABS: BASO # 0.1 x10^3/uL (0.0-0.2); BASO % 1 % (0-3); EOS # 0.1 x10^3/uL (0.0-0.7); EOS % 3 % (0-3); HEMATOCRIT 36.9 % (39.0-53.0); HEMOGLOBIN 12.4 g/dL (13.0-17.5); LYMPH # 1.4 x10^3/uL (1.0-4.8); LYMPH % 28 % (24-48); MEAN CORPUSCULAR HEMOGLOBIN 30 pg (25-35); MEAN CORPUSCULAR HGB CONC 34 g/dL (31-37); MEAN CORPUSCULAR VOLUME 90 fL (79-100); MONO # 0.5 x10^3/uL (0.0-1.1); MONO % 11 % (0-9); NEUT # 2.8 x10^3/uL (1.8-7.7); NEUT % 57 % (31-73); PLATELET COUNT 123 x10^3/uL (140-400); RED BLOOD COUNT 4.08 x10^6/uL (4.30-5.70); RED CELL DISTRIBUTION WIDTH 14.7 % (11.5-14.5); WHITE BLOOD COUNT 4.9 x10^3/uL (4.0-11.0)
[2019-11-01] MEDS ORDERED: HALOPERIDOL LACTATE 5 MG/ML VIAL. SQ ONE (15:30)
[2019-11-01] MEDS ORDERED: THIAMINE 100 MG TABLET. PO ONE (15:30)
[2019-11-01] MEDS ORDERED: MULTIVIT INFUSN,ADULT 4,VIT K 10 ML, FOLIC ACID INJ 1 MG in IV NORMAL SALINE 1000ML BAG... IV ONE (15:30)
[2019-11-01] MEDS ORDERED: FAMOTIDINE 20 MG/2 ML VIAL IVP ONE (15:30)
[2019-11-01 15:35] LABS: MAGNESIUM 1.3 mg/dL (1.8-2.4)
[2019-11-01 15:36] LABS: CALCIUM 8.9 mg/dL (8.5-10.1); CREATININE 0.9 mg/dL (0.7-1.3); GFR 105.6; POTASSIUM 3.4 mmol/L (3.5-5.1)
[2019-11-01 15:42] LABS: ALBUMIN 3.2 g/dL (3.4-5.0); ALBUMIN/GLOBULIN RATIO 0.7 (1.0-1.7); C-REACTIVE PROTEIN 20.8 mg/L (0-3.3); TOTAL BILIRUBIN 0.7 mg/dL (0.2-1.0); TOTAL PROTEIN 7.8 g/dL (6.4-8.2)
--- NOTE | 2019-11-01 15:57 | RAD ---
EXAM: CHEST 1 VIEW History: Chest pain COMPARISON: None available. TECHNIQUE: Single portable radiograph of the chest FINDINGS: The cardiac silhouette is unremarkable. The lungs are clear bilaterally. The costophrenic sulci are clear and well demarcated. Calcifications project over the left scapula could be shoulder joint loose bodies or soft tissue calcifications. IMPRESSION: No acute cardiopulmonary findings. Electronically signed by: Randy Gama MD (11/01/2019 3:55 PM) [id number]
--- NOTE | 2019-11-01 16:21 | EKG ---
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
[2019-11-01 17:11] VITALS: BP 172/91
--- NOTE | 2019-11-01 17:18 | PHYS DOC ---
Past Medical History Past Medical History: Anemia, GERD, Pancreatitis, Other Additional Past Medical Histor: SHINGLES Past Surgical History: Other Additional Past Surgical Histo: PLATE/SCREWS RIGT FEMUR AND RIGHT HUMERUS Smoking Status: Never Smoker Alcohol Use: Heavy Drug Use: None Adult General Chief Complaint Chief Complaint: ABDOMINAL PAIN HPI HPI Patient is a 54 year old male with history of chronic pancreatitis who presents with epigastric pain nausea and bilious emesis after drinking alcohol throughout this morning and this afternoon. Pain is described as sharp rated moderate to severe and is nonradiating. Is not associated with fevers chills or sweats. Denies hematemesis, coffee-ground emesis, hematochezia, and melena. New fevers chills, sweats. No other acute symptoms or complaints. [] Review of Systems Review of Systems Review of symptoms as per HPI. All other review of symptoms are negative. All other systems were reviewed and found to be within normal limits, except as documented in this note. Current Medications Current Medications Current Medications Medications (Trade) Dose Ordered Sig/[facility] Start Time Stop Time Status Last Admin Dose Admin Famotidine (Pepcid Vial) 20 mg 1X ONCE 11/01/19 15:30 11/01/19 15:31 DC 11/01/19 15:42 20 MG Haloperidol Lactate (Haldol Inj) 2.5 mg 1X ONCE 11/01/19 15:30 11/01/19 15:31 DC 11/01/19 15:42 2.5 MG Multivitamins 10 ml/Folic Acid 1 mg/Sodium Chloride 1,010.2 ml @ 999.099 mls/hr 1X ONCE 11/01/19 15:30 11/01/19 16:30 DC 11/01/19 15:42 999.099 MLS/HR Thiamine Mononitrate (Vitamin B-1) 100 mg 1X ONCE 11/01/19 15:30 11/01/19 15:31 DC 11/01/19 15:42 100 MG Allergies Allergies Allergies Coded Allergies Type Severity Reaction Last Updated Verified No Known Drug Allergies 11/06/17 No Physical Exam Physical Exam Constitutional: Well developed, well nourished, no acute distress, non-toxic appearance. [] HENT: Normocephalic, atraumatic, bilateral external ears normal, oropharynx moist, nose normal. [] Eyes: PERRLA, EOMI, conjunctiva normal, no discharge. [] Neck: Normal range of motion. [] Cardiovascular:Heart rate regular rhythm, no murmur [] Lungs & Thorax: Bilateral breath sounds clear to auscultation [] Abdomen: Bowel sounds normal, soft, epigastric pain, tenderness.. [] Skin: Warm, dry, no erythema, no rash. [] Back: No tenderness. [] Extremities: No tenderness, no edema. [] Neurologic: Alert and oriented X 3, normal motor function, normal sensory function, no focal deficits noted. [] Psychologic: Affect normal, judgement normal, mood normal. [] Current Patient Data Vital Signs Vital Signs Date Time Temp Pulse Resp B/P (MAP) Pulse Ox O2 Delivery O2 Flow Rate FiO2 11/01/19 15:16 98.1 85 20 167/94 (118) 99 Room Air 98.1 Lab Values Laboratory Tests Test 11/01/19 15:17 White Blood Count 4.9 x10^3/uL (4.0-11.0) Red Blood Count 4.08 x10^6/uL (4.30-5.70) L Hemoglobin 12.4 g/dL (13.0-17.5) L Hematocrit 36.9 % (39.0-53.0) L Mean Corpuscular Volume 90 fL (79-100) Mean Corpuscular Hemoglobin 30 pg (25-35) Mean Corpuscular Hemoglobin Concent 34 g/dL (31-37) Red Cell Distribution Width 14.7 % (11.5-14.5) H Platelet Count 123 x10^3/uL (140-400) L Neutrophils (%) (Auto) 57 % (31-73) Lymphocytes (%) (Auto) 28 % (24-48) Monocytes (%) (Auto) 11 % (0-9) H Eosinophils (%) (Auto) 3 % (0-3) Basophils (%) (Auto) 1 % (0-3) Neutrophils # (Auto) 2.8 x10^3/uL (1.8-7.7) Lymphocytes # (Auto) 1.4 x10^3/uL (1.0-4.8) Monocytes # (Auto) 0.5 x10^3/uL (0.0-1.1) Eosinophils # (Auto) 0.1 x10^3/uL (0.0-0.7) Basophils # (Auto) 0.1 x10^3/uL (0.0-0.2) Sodium Level 136 mmol/L (136-145) Potassium Level 3.4 mmol/L (3.5-5.1) L Chloride Level 96 mmol/L (98-107) L Carbon Dioxide Level 28 mmol/L (21-32) Anion Gap 12 (6-14) Blood Urea Nitrogen 5 mg/dL (8-26) L Creatinine 0.9 mg/dL (0.7-1.3) Estimated GFR (Cockcroft-Gault) 105.6 BUN/Creatinine Ratio 6 (6-20) Glucose Level 91 mg/dL (70-99) Calcium Level 8.9 mg/dL (8.5-10.1) Magnesium Level 1.3 mg/dL (1.8-2.4) L Total Bilirubin 0.7 mg/dL (0.2-1.0) Aspartate Amino Transferase (AST) 48 U/L (15-37) H Alanine Aminotransferase (ALT) 19 U/L (16-63) Alkaline Phosphatase 175 U/L (46-116) H C-Reactive Protein, Quantitative 20.8 mg/L (0-3.3) H Total Protein 7.8 g/dL (6.4-8.2) Albumin 3.2 g/dL (3.4-5.0) L Albumin/Globulin Ratio 0.7 (1.0-1.7) L Lipase 510 U/L (73-393) H Ethyl Alcohol Level 124 mg/dL (0-10) H Laboratory Tests 11/01/19 15:17 Laboratory Tests 11/01/19 15:17 EKG EKG [] Radiology/Procedures Radiology/Procedures [CXR: NAD] Course & Med Decision Making Course & Med Decision Making Pertinent Labs and Imaging studies reviewed. (See chart for details) [Chronic pancreatitis with ongoing alcoholism.. Abdominal soft, non-sx. Symptoms improved with tx. ] Dragon Disclaimer Dragon Disclaimer This electronic medical record was generated, in whole or in part, using a voice recognition dictation system. Departure Departure Impression: Primary Impression: Chronic pancreatitis Additional Impression: Alcohol abuse Disposition: HOME, SELF-CARE Condition: STABLE Referrals: UNKNOWN PCP NAME (PCP) Patient Instructions: Acute Pancreatitis, [id number], Alcohol Intoxication, [id number] Additional Instructions: Please avoid alcohol as this the cause of your abdominal pain. Drink clear liquids and take newly prescribed medications as directed. Follow up with your PCP and outpatient rehab. Return to the ED if new or worsening symptoms. Scripts Famotidine (PEPCID) 20 Mg Tablet 20 MG PO BID, #30 TAB Prov: ARLEY JORGENSEN DO 11/01/19 Ondansetron Hcl (ZOFRAN) 4 Mg Tablet 1 TAB PO Q6HRS, #10 TAB 0 Refills Prov: ARLEY JORGENSEN DO 11/01/19 Problem Qualifiers ARLEY JORGENSEN DO November 01, 2019 17:18
[2019-11-01] MEDS ORDERED: FAMO-63 PO (17:37)
[2019-11-01] MEDS ORDERED: ONDA4TAB7 PO (17:37)
== END 2019-11-01 17:49 | disposition home or self-care (01) ==
LOC: ER 15:08
DX: K85.90 Acute pancreatitis without necrosis or infection, unspecified (principal); F10.20 Alcohol dependence, uncomplicated; Y90.6 Blood alcohol level of 120-199 mg/100 ml; R11.2 Nausea with vomiting, unspecified
CPT/HCPCS: 36415; 71045; 80053; 83690; 83735; 85025; 86140; 93005; 96365; 96372; 96375; 99285; G0480; J1630; J3490; J7030